=== PATIENT | female | born 1990 | race African-American/Black ===

== ENCOUNTER 2023-11-17 06:48 | Outpatient (CLI) | payer BC, MEDICAID, SELFPAY ==
--- NOTE | ~2023-11-17 | US_ITS ---
EXAMINATION: US OB <= 14 weeks fetus DATE: 11/17/2023 07:35 INDICATION: Spotting in first trimester. TECHNIQUE: Real-time transabdominal pelvic ultrasound was performed. COMPARISON: None. FINDINGS: The uterus measures 12.1 x 5.6 x 7.1 cm. There is an intrauterine gestational sac. The crown ru mp length measures 4.6 cm, which correlates with an estimated gestational age of 11 weeks and 3 day(s ) (+/-) 1 week(s) and 0 day(s). heart motion is identified measuring 159 beats per minute (bpm) by M-mode Doppler. The right ovary is not visualized. The left ovary measures 2.8 x 2.0 x 2.1 cm. Th ere is no free fluid in the pelvis. IMPRESSION: 1. Single living intrauterine gestation with estimated date of delivery of 06/04/2024. Reviewed, dictated and finalized at location A. IMPRESSION: 1. Single living intrauterine gestation with estimated date of delivery of 05/26.
== END 2023-11-17 06:49 | disposition home or self-care (01) ==
PROVIDERS: Visit Provider Obstetrics & Gynecology Gynecology
DX: O26.851 Spotting complicating pregnancy, first trimester (principal); Z3A.00 Weeks of gestation of pregnancy not specified
CPT/HCPCS: 76801

== ENCOUNTER 2024-02-13 13:31 | Observation (INO) | payer BC, MEDICAID, SELFPAY ==
[2024-02-13 14:02] VITALS: BP 127/66; PULSE 92
--- NOTE | 2024-02-13 14:12 | OBADM ---
This patient, Terrance Rios, admitted to the OB room [facility] for observation. Patient/family oriented to hospital policies and general routines including ID bracelet, bed and alarms, visiting hours, pain management, procedures, bathroom and other care routines, personal items, smoking policy, room service/diet, and visiting hours. Patient/Family are encouraged to report perceived risks to care and to ask questions if they do not understand what they are told or what they should do.
[2024-02-13 14:16] VITALS: BP 124/62; PULSE 90
[2024-02-13 14:22] LABS: Add Urine Microscopic? YES; Appearance Urine Cloudy (Clear); Bacteria Urine 4+ /hpf; Bilirubin Urine Negative (Negative); Blood Urine Negative (Negative); Color Urine Yellow (Yellow); Glucose Urine UA Negative (Negative); Ketones Urine 4+ mg/dL (Negative); Leukocyte Esterase Ur 2+ LEU/UL (Negative); Need Manual Microscopic Reviewed; Nitrate Urine Negative (Negative); Protein Urine 1+ mg/dL (Negative); RBC Urine 0-2 /hpf (0-2); Specific Grav Ur 1.031 (1.001-1.035); Squamous Epithelial Cell Urine Moderate /hpf (Few); WBC Urine 21-50 /hpf (0-3); pH Urine 5.5 (5.0-9.0)
[2024-02-13 14:31] VITALS: BP 118/68; PULSE 105
[2024-02-13 15:08] LABS: Basophils Percent Auto 0.4 % (0.2-1.2); Eosinophils Absolute Auto 0.1 K/mm3 (0-0.3); Hematocrit 31.5 % (37.0-47.0); Hemoglobin 10.6 g/dL (12.0-15.0); Immature Granulocyte Absolute 0.03 K/mm3 (0.00-0.031); Immature Granulocyte Percent A 0.4 % (0-0.5); Lymphocytes Absolute Auto 1.36 K/mm3 (0.9-3.2); Lymphocytes Percent Auto 19.6 % (18.3-44.2); Mean Corpuscular HGB Conc 33.7 g/dl (32-36); Mean Corpuscular Hemoglobin 30.5 pg (26-34); Mean Corpuscular Volume 90.8 fl (80-100); Mean Platelet Volume 10.6 fl (7.4-10.4); Monocytes Absolute Auto 0.5 K/mm3 (0.1-0.6); Monocytes Percent Auto 6.6 % (2.6-8.5); Neutrophils Absolute Auto 4.9 K/mm3 (1.3-6.7); Platelet Count Result 193 k/mm3 (150-375); Red Blood Count 3.47 M/mm3 (4.2-5.4); Red Cell Distribution Width 13.7 % (11.5-14.5)
[2024-02-13 15:18] LABS: Alanine Aminotransferase 20 U/L (6-35); Albumin Level 3.5 g/dL (3.5-5.1); Alkaline Phosphatase 96 U/L (38-126); Anion Gap 7 mmol/L (4-12); Aspartate Amino Transferase 24 U/L (14-36); Bilirubin,Total 0.3 mg/dL (0.2-1.3); Blood Urea Nitrogen 7 mg/dL (7-17); Calcium 9.1 mg/dL (8.4-10.2); Carbon Dioxide 20 mmol/L (22-30); Chloride 108 mmol/L (98-107); Estimated Glomerular Filt Rate > 60; Glucose 93 mg/dL (65-110); Potassium 3.4 mmol/L (3.4-5.0); Sodium 135 mmol/L (137-145); Uric Acid 3.7 mg/dL (2.5-7.5)
--- NOTE | 2024-02-18 11:21 | PM.OBTRLD ---
OB - Triage/Final Diagnosis Visit Information Reason for evaluation: other (abdominal pain) Comments/Additional reasons for admission: I have assessed the risk for this patient, Terrance Rios, and determined that she would benefit from observation care. Evaluation Laboratory results: Laboratory Tests 02/13/24 02/13/24 14:03 14:58 WBC 7.0 RBC 3.47 L Hgb 10.6 L Hct 31.5 L MCV 90.8 MCH 30.5 MCHC 33.7 RDW 13.7 Plt Count 193 MPV 10.6 H Immature Gran % (Auto) 0.4 Neut % (Auto) 71.0 Lymph % (Auto) 19.6 [place] % (Auto) 6.6 Eos % (Auto) 2.0 Baso % (Auto) 0.4 Lymph # (Auto) 1.36 [place] # (Auto) 0.5 Eos # (Auto) 0.1 Baso # (Auto) 0.0 Abs Immat Gran (auto) 0.03 Absolute Neuts (auto) 4.9 Absolute Nucleated RBC 0.000 Nucleated RBC % 0.0 Sodium 135 L Potassium 3.4 Chloride 108 H Carbon Dioxide 20 L Anion Gap 7 BUN 7 Creatinine 0.50 L Estim Creat Clear Calc Not Reportable Estimated GFR > 60 Glucose 93 Uric Acid 3.7 Calcium 9.1 Total Bilirubin 0.3 AST 24 ALT 20 Alkaline Phosphatase 96 Total Protein 7.0 Albumin 3.5 Urine Color Yellow Urine Appearance Cloudy H Urine pH 5.5 Ur Specific [place] 1.031 Urine Protein 1+ H Urine Glucose (UA) Negative Urine Ketones 4+ H Ur Blood (Man) Negative Urine Nitrate Negative Urine Bilirubin Negative Urine Urobilinogen 1.0 Add Ur Microanalysis Reviewed Leukocyte Esterase Rfl 2+ H Urine RBC 0-2 Urine WBC 21-50 H Ur Squamous Epith Cells Moderate Urine Bacteria 4+ H Urine Casts 11-20
== END 2024-02-13 15:35 | disposition home or self-care (01) ==
PROVIDERS: Admitting Provider Obstetrics & Gynecology Gynecology; PCP Physician Assistant; Visit Provider Obstetrics & Gynecology Gynecology
DX: O26.892 Other specified pregnancy related conditions, second trimester (principal); R10.9 Unspecified abdominal pain; Z3A.24 24 weeks gestation of pregnancy
CPT/HCPCS: 36415; 80053; 81001; 84550; 85025; 87086; G0378; G0379

== ENCOUNTER 2024-02-20 08:19 | Outpatient (CLI) | payer BC, MEDICAID, SELFPAY ==
--- NOTE | ~2024-02-20 | US_ITS ---
RIGHT UPPER QUADRANT ABDOMINAL ULTRASOUND (Doppler ultrasound interrogation techniques used as needed for this exam.) Ordering provider: Yolie Isaacs MD History: . O26.899 - Other specified related conditions, u... . Comparison: None. FINDINGS: PANCREAS: Partially visualized. Normal echotexture and size. PORTAL VEIN: Hepatopedal flow demonstrated. LIVER: Normal size and echotexture. No focal hepatic lesions or perihepatic fluid collections are kaela ntified. BILIARY DUCTS: No intra or extrahepatic biliary dilation. Common bile duct measures 3 mm in diameter which is normal for patient's age. GALLBLADDER: Normal. No stones, sludge, gallbladder wall thickening or pericholecystic fluid. Wall th ickness is 0.2 cm. Negative sonographic Durham's sign. RIGHT KIDNEY: Normal size. Measures 11.1 cm. No hydronephrosis, solid renal mass, renal calculi or pe rinephric fluid collections. No renal cysts. Abdominal aorta: Normal. IVC: Normal. FREE FLUID: None visualized within the upper abdomen. IMPRESSION: normal right upper quadrant ultrasound. Reviewed, dictated and finalized at location A. 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
== END 2024-02-20 08:20 | disposition home or self-care (01) ==
LOC: MICIMG 08:19
PROVIDERS: PCP Obstetrics & Gynecology Gynecology; Visit Provider Obstetrics & Gynecology Gynecology
DX: O26.899 Other specified pregnancy related conditions, unspecified trimester (principal); Z3A.00 Weeks of gestation of pregnancy not specified
CPT/HCPCS: 76705

== ENCOUNTER 2024-03-21 22:21 | Observation (INO) | payer BC, MEDICAID, SELFPAY ==
[2024-03-21] VITALS (21 sets, daily range): BP systolic 108–134; BP diastolic 67–76; PULSE 102–121; TEMP 36.4; O2SAT 95–100; BMI 36.2
[2024-03-21] MEDS: ONDANSETRON INJ 4 MG/2 ML VIAL IV PUSH (22:58)
[2024-03-21] MEDS: DEXTROSE 5%/0.45% SOD CHL 1,000 ML 999 ML IV CONT (23:00)
[2024-03-21 23:01] LABS: Add Urine Microscopic? YES; Appearance Urine Cloudy (Clear); Bacteria Urine 1+ /hpf; Bilirubin Urine Negative (Negative); Blood Urine Negative (Negative); Color Urine Yellow (Yellow); Glucose Urine UA Negative (Negative); Ketones Urine 3+ mg/dL (Negative); Leukocyte Esterase Ur 1+ LEU/UL (Negative); Nitrate Urine Negative (Negative); Non Pathogenic Casts 0-2; Protein Urine Negative (Negative); RBC Urine 0-2 /hpf (0-2); Specific Grav Ur 1.022 (1.001-1.035); Squamous Epithelial Cell Urine Few /hpf (Few)
[2024-03-22] VITALS (7 sets, daily range): BP systolic 121–134; BP diastolic 70–76; PULSE 106–112; O2SAT 95–99
[2024-03-22] MEDS: METOCLOPRAMIDE HCL INJ 10 MG/2 ML VIAL IV PUSH (00:24)
[2024-03-22] MEDS: DEXTROSE 5%/0.45% SOD CHL 1,000 ML 250 ML IV CONT (00:24)
--- NOTE | 2024-04-16 11:24 | PM.OBTRLD ---
OB - Triage/Final Diagnosis Visit Information Comments/Additional reasons for admission: I have assessed the risk for this patient, Terrance Rios, and determined that she would benefit from observation care. Evaluation Laboratory results: Laboratory Tests 03/21/24 22:50 Urine Color Yellow Urine Appearance Cloudy H Urine pH 7.0 Ur Specific [place] 1.022 Urine Protein Negative Urine Glucose (UA) Negative Urine Ketones 3+ H Ur Blood (Man) Negative Urine Nitrate Negative Urine Bilirubin Negative Urine Urobilinogen 1.0 Leukocyte Esterase Rfl 1+ H Urine RBC 0-2 Urine WBC 6-10 H Ur Squamous Epith Cells Few Urine Bacteria 1+ H Urine Casts 0-2 Final Diagnosis (1) Nausea and vomiting during : Code(s): O21.9 - Vomiting of , unspecified Status: Acute
== END 2024-03-22 03:59 | disposition home or self-care (01) ==
PROVIDERS: Admitting Provider Obstetrics & Gynecology; Visit Provider Obstetrics & Gynecology
DX: O21.2 Late vomiting of pregnancy (principal); Z3A.29 29 weeks gestation of pregnancy
CPT/HCPCS: 59025; 81001; 87086; 96374; 96375; G0378; G0379; J2405; J2765

== ENCOUNTER 2024-05-24 09:04 | Outpatient (RCR) | payer BC, MEDICAID, SELFPAY ==
[2024-04-19 17:10] VITALS: BP 124/69; PULSE 106
[2024-04-26 17:06] VITALS: BP 118/62; PULSE 99
[2024-05-03 17:04] VITALS: BP 119/64; PULSE 101
[2024-05-10 16:56] VITALS: BP 120/67; PULSE 103
[2024-05-17 17:04] VITALS: BP 123/66; PULSE 101
--- NOTE | ~2024-05-24 | US_ITS ---
EXAMINATION: US OB BPP wo non-stress DATE: 05/24/2024 10:56 INDICATION: Variable decelerations. Third trimester. TECHNIQUE: Real-time pelvic ultrasound was performed. COMPARISON: Ultrasound 11/17/2023 FINDINGS: There is a single living fetus in vertex presentation. The placenta is fundal. heart rate is 1 26 beats per minute (bpm). The amniotic fluid index is 9.7 cm which is normal. Biophysical profile performed by the technologist: breathing (30 sec sustained breathing in 30 minutes): 2 out of 2 movement (3 gross body movements in 30 minutes): 2 out of 2 tone (one episode of [id number]-[id number]-[id number] limb movement): 2 out of 2 Amniotic fluid pocket (2 cm): 2 out of 2 Total score: 8 out of 8 IMPRESSION: 1. Single living fetus in vertex presentation. 2. Biophysical profile 8 out of 8. Reviewed, dictated and finalized at location A. 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
[2024-05-24 11:05] VITALS: BP 121/77; PULSE 90
== END 2024-07-18 17:13 | disposition home or self-care (01) ==
LOC: ANHOBOP 09:04
PROVIDERS: Visit Provider Obstetrics & Gynecology Gynecology
DX: O13.9 Gestational [pregnancy-induced] hypertension without significant proteinuria, unspecified trimester (principal)
CPT/HCPCS: 59025; 76819

== ENCOUNTER 2024-05-28 08:39 | Inpatient (IN) | payer BC, MEDICAID, SELFPAY ==
[2024-05-28] VITALS (52 sets, daily range): BP systolic 105–147; BP diastolic 59–104; PULSE 67–173; TEMP 36.3–36.8; O2SAT 93–100; BMI 36.2
--- NOTE | 2024-05-28 09:00 | PC.NURSE ---
Pt. admitted at 0839 direct from [facility] office, Becca DIALLO noted low heart tones
--- OUTSIDE RECORDS SUMMARY | 2024-05-28 09:44 | XMS_ITS | Referral Summary ---
Author Organization [facility] Address [address] [place] [phone] Care Team Providers Care Relief Manager Name Role Phone Ml Griffin Primary Care Provider + Allergies No known active allergies Medications cyclobenzaprine (FLEXERIL) 10 mg tablet Take 1 tablet (10 mg total) by mouth 3 (three) times a day as needed for muscle spasms 12 tablet 3 Active ondansetron ODT (ZOFRAN-ODT) 4 mg disintegrating tablet Take 1 tablet (4 mg total) by mouth every 8 (eight) hours as needed for nausea or vomiting 20 tablet 3 Active Social History Tobacco Use Types Packs/Day Years Used Date Smoking Tobacco: Never Assessed Personal Safety Answer Date Recorded Have you ever been in or are you currently in a harmful physical or emotional relationship or is someone making you feel afraid or unsafe? Denies 09/22/2023 Comments No Sex and Gender Information Value Date Recorded Sex Assigned at Not on file Legal Sex Female 1:34 PM CDT Gender Identity Not on file Sexual Orientation Not on file Last Filed Vital Signs Vital Sign Reading Time Taken Comments Blood Pressure 139/78 09/22/2023 5:35 PM CDT Pulse 78 09/22/2023 5:35 PM CDT Temperature 36.7 C (98.1 F) 09/22/2023 2:25 PM CDT Respiratory Rate 18 09/22/2023 5:35 PM CDT Oxygen Saturation 100% 09/22/2023 5:35 PM CDT Inhaled Oxygen Concentration - - Weight 101.1 kg (222 lb 14.2 oz) 09/22/2023 2:25 PM CDT Height 170.2 cm (5' 7 ) 09/22/2023 2:25 PM CDT Body Mass Index 34.91 09/22/2023 2:25 PM CDT Plan of Treatment Not on file Insurance [facility] Care Teams Relief Manager Relationship Specialty Start Date End Date Ml Griffin PA PCP - General Physician Seed Potato Cutter 05/11/22
--- OUTSIDE RECORDS SUMMARY | 2024-05-28 09:44 | XMS_ITS | Patient Health Summary ---
Author Organization [facility] Address [address] [place] [address] Care Team Providers Care Hospital Attendant Name Role Phone Unavailable Primary Care Provider Unavailabl e Note from [facility] [place],non-owned Affiliates and Associated Physician Practices is amultiple site organization consisting of ambulatory clinics and hospital sitesin [place], [place], [place] and [place]. This disclosure is being madepursuant to the Care Everywhere program and may not contain all information available regarding this patient. Last updated 17.[facility] Allergies * Shellfish Allergy(Swelling) Medications * Be aware that medications may not be up to date on this document. Alwaysverify current medications with the patient. * NIFEdipine CR 24hr (Adalat CC) 60 MG tablet Take 1 (one) tablet by mouth once daily Take on an empty stomach. * Vit-DSS-Fe Fum-FA ( vitamin with iron) tablet Take 1 (one) tablet by mouth once daily * aspirin (Aspirin) 81 MG chew tablet Take 2 (two) tablets by mouth once daily * vitamin D3 (Cholecalciferol) 10 MCG (400 UNIT) tablet Take 1 (one) tablet by mouth once daily * ascorbic acid (Vitamin C) 500 MG tablet Take 1 (one) tablet by mouth once daily * lactobacillus (FLORAGEN) Take 1 (one) capsule by mouth once daily * ferrous sulfate 325 (65 FE) MG tablet Take 1 (one) tablet by mouth once daily Reasons: Iron Deficiency Active Problems Problem Noted Date Diagnosed Date Obesity affecting 01/18/2024 Class 1 obesity in adult 01/18/2024 Prediabetes in mother during Supervision of high-risk , unspecified trimester 12/21/2023 Pre-existing hypertension du ring in second trimester 12/21/2023 Advanced maternal age in multigravida, second tr imester 12/21/2023 Hx of preeclampsia, prior pr egnancy, currently , second trimester 12/21/2023 Social History Tobacco Use Types Packs/Day Years Used Date Smoking Tobacco: Never Smokeless Tobacco: Never Tobacco Cessation:Counseling Given: Not Answered Alcohol Use Standard Drinks/Week Comments Not Currently 0 (1 standard drink = 0.6 oz pur e alcohol) Estimated Date of Delivery Comme nts Yes 06/04/2024 Based on last me nstrual period of 08/29/2023 Sex and Gender Information Value Date Recorded Sex Assigned at Female 05/07/2024 10:13 AM WOMEN DESIGNER Gender Identity Female 05/07/2024 10:13 AM WOMEN DESIGNER Sexual Orientation Straight 05/07/2024 10 :13 AM WOMEN DESIGNER Last Filed Vital Signs Vital Sign Reading Time Taken Comments Blood Pressure 118/72 05/28/2024 8:28 AM WOMEN DESIGNER Pulse 95 05/28/2024 8:28 AM WOMEN DESIGNER Temperature - - Respiratory Rate 18 01/18/2024 8:10 AM CDT Oxygen Saturation - - Inhaled Oxygen Concentration - - Weight 106.1 kg (233 lb 14.4 oz) 05/09/2024 8:05 AM WOMEN DESIGNER Height 170.2 cm (5' 7 ) 03/14/2024 8:11 AM WOMEN DESIGNER Body Mass Index 36.63 03/14/2024 8:11 AM WOMEN DESIGNER Procedures * BIOPHYSICAL PROFILE W NST(Performed 05/28/2024) Performed for Supervision of high-risk , unspecified trimester (HCC), Advanced maternal age in multigravida, second trimester (HCC), Hx of preeclampsia, prior , currently , second trimester (HCC), Prediabetes in mother during (HCC), 39 weeks gestation of (HCC), Class 1 obesity without serious comorbidity in adult, unspecified BMI, unspecified obesity type, Pre-existing hypertension during in second trimester, unspecified pre-existing hypertension type (HCC) * BIOPHYSICAL PROFILE W NST(Performed 05/21/2024) Performed for Supervision of high-risk , unspecified trimester (HCC), Advanced maternal age in multigravida, second trimester (HCC), Hx of preeclampsia, prior , currently , second trimester (HCC), Prediabetes in mother during (HCC), Class 1 obesity without serious comorbidity in adult, unspecified BMI, unspecified obesity type, Pre-existing hypertension during in second trimester, unspecified pre-existing hypertension type (HCC) * BIOPHYSICAL PROFILE W NST(Performed 05/14/2024) Performed for Pre-existing essential hypertension during in third trimester (HCC), Advanced maternal age in multigravida, third trimester (HCC), Hx of preeclampsia, prior , currently , second trimester (HCC), Obesity affecting , antepartum, unspecified obesity type (HCC), Prediabetes in mother during (HCC), Encounter for ultrasound to assess growth (HCC), Encounter for screening (HCC) * BIOPHYSICAL PROFILE W NST(Performed 05/07/2024) Performed for Pre-existing essential hypertension during in third trimester (HCC), Advanced maternal age in multigravida, third trimester (HCC), Hx of preeclampsia, prior , currently , second trimester (HCC), Obesity affecting , antepartum, unspecified obesity type (HCC), Prediabetes in mother during (HCC), Encounter for ultrasound to assess growth (HCC), Encounter for screening ([facility]) * BIOPHYSICAL PROFILE W NST(Performed 04/30/2024) Performed for Pre-existing essential hypertension during in third trimester (HCC), Advanced maternal age in multigravida, third trimester (HCC), Hx of preeclampsia, prior , currently , second trimester (HCC), Obesity affecting , antepartum, unspecified obesity type (HCC), Prediabetes in mother during (HCC), Encounter for ultrasound to assess growth (HCC), Encounter for screening ([facility]) * BIOPHYSICAL PROFILE W NST(Performed 04/23/2024) Performed for Pre-existing essential hypertension during in third trimester (HCC), Advanced maternal age in multigravida, third trimester (HCC), Hx of preeclampsia, prior , currently , second trimester (HCC), Obesity affecting , antepartum, unspecified obesity type (HCC), Prediabetes in mother during (HCC), Encounter for ultrasound to assess growth (HCC), Encounter for screening ([facility]) * BIOPHYSICAL PROFILE W NST(Performed 04/16/2024) Performed for Pre-existing essential hypertension during in third trimester (HCC), Advanced maternal age in multigravida, third trimester (HCC), Hx of preeclampsia, prior , currently , second trimester (HCC), Obesity affecting , antepartum, unspecified obesity type (HCC), Prediabetes in mother during (HCC), Encounter for ultrasound to assess growth (HCC), Encounter for screening (HCC) * BIOPHYSICAL PROFILE W NST(Performed 04/11/2024) Performed for Pre-existing essential hypertension during in third trimester (HCC), Advanced maternal age in multigravida, third trimester (HCC), Hx of preeclampsia, prior , currently , second trimester (HCC), Obesity affecting , antepartum, unspecified obesity type (HCC), Prediabetes in mother during (HCC), Encounter for ultrasound to assess growth (HCC), Encounter for screening (HCC) * PROTEIN CREATININE RATIO URINE RANDOM PNL(Performed 03/19/2024) * TSH REFLEX FREE T4(Performed 03/19/2024) * SONOGRAM - COMPLETE(Performed 03/14/2024) Performed for Supervision of high-risk , unspecified trimester (HCC), Pre-existing essential hypertension during in second trimester (HCC), Advanced maternal age in multigravida, second trimester (HCC), Hx of preeclampsia, prior , currently , second trimester (HCC), Obesity affecting , antepartum, unspecified obesity type (HCC), Prediabetes in mother during (HCC), 28 weeks gestation of (HCC) * SONOGRAM - COMPLETE(Performed 02/15/2024) Performed for Supervision of high-risk , unspecified trimester (HCC), Pre-existing essential hypertension during in second trimester (HCC), Advanced maternal age in multigravida, second trimester (HCC), Hx of preeclampsia, prior , currently , second trimester (HCC), Obesity affecting , antepartum, unspecified obesity type (HCC), Prediabetes in mother during (HCC), 24 weeks gestation of (HCC) * SONOGRAM - COMPLETE(Performed 01/18/2024) Performed for Supervision of high-risk , unspecified trimester (HCC), Pre-existing hypertension during in second trimester, unspecified pre- existing hypertension type (HCC), Advanced maternal age in multigravida, second trimester (HCC), Hx of preeclampsia, prior , currently , second trimester (HCC), 20 weeks gestation of (HCC) * COMPREHENSIVE METABOLIC PANEL(Performed 01/09/2024) * PROTEIN CREATININE RATIO URINE TIMED PNL(Performed 01/02/2024) * TSH(Performed 01/02/2024) * T4 FREE(Performed 01/02/2024) * COMPREHENSIVE METABOLIC PANEL(Performed 01/02/2024) * CREATININE CLEARANCE URINE TIMED + BLOOD(Performed 01/02/2024) * SONOGRAM - COMPLETE(Performed 12/21/2023) Performed for Chronic hypertension, Pre-eclampsia in second trimester ([facility]), History of cardiomyopathy, Pre-diabetes, Proteinuria affecting in second trimester ([facility]), Encounter for anatomic survey ([facility]) Results * BIOPHYSICAL PROFILE W NST (05/28/2024 7:27 AM WOMEN DESIGNER) Only the most recent of8 resultswithin the time period is included. Linked Results Indication ======== CHTN on nifedipine, Pre-Diabetic A1C = 5.8%, Class I obesity AMA Prior preeclampsia 11/21/2023 Creatinine 0.65 mg/dL, Proteinuria 490 mg/day 01/02/2024 Creatinine 1.54 mg/dL, Proteinuria 156 mg/day 01/09/2024 Creatinine 0.53 mg/dL 03/19/2024 Proteinuria PCR 0.140 mg/mg History ====== OB History 6. Para 2 [id number] 1. live 2010. Gest. age 39 w + 0 d. Weight 2,331 g. Sex of child: female. Details: 2. live 2016. Gest. age 39 w + 0 d. Weight 3,175 g. Sex of child: male. Details: 3. elective termination 2020 4. elective termination 2021 5. elective termination 2023 Lab Tests Test Date Result NIPT Low risk Maternal Assessment Physical Exam Height 170 cm, 5 ft 7 in. Weight 104 kg, 229 lb. Initial weight 101 kg, 222 lb. BMI 35.87 kg/m . Initial BMI 34.77 kg/m . Weight gain 3 kg, 7 lb Method ====== Transabdominal ultrasound examination. View: Sufficient ========= Rajan . Number of fetuses: 1 Dating ====== Date Details Gest. age LUCIA LMP 08/29/2023 39 w + 0 d 06/04/2024 Stated LUCIA 39 w + 0 d 06/04/2024 Assigned dating based on the LMP, selected on 02/15/2024 39 w + 0 d 06/04/2024 General Evaluation Cardiac activity present. FHR 137 bpm. movements: present. Presentation: cephalic Placenta: Placental site: posterior Amniotic Fluid Assessment == Amount of AF: normal MVP 5.5 cm. KORI 13.2 cm. Q1 3.0 cm, Q2 2.2 cm, Q3 2.5 cm, Q4 5.5 cm Biophysical Profile 2: breathing movements 2: Gross body movements 2: tone 2: Amniotic fluid volume NST: non-reactive 11/04 Biophysical profile score Non Stress Test NST interpretation: non-reactive. Test duration 30 min. Baseline FHR 130 bpm. Baseline variability: minimal. Accelerations: present. Decelerations: present, recurrent variable, late, >= 30 seconds. Uterine activity: present, sporadic. CTG category: abnormal and indicates need for conservative measures and further testing Growth Overview Exam date GA BPD (mm) HC (mm) AC (mm) FL (mm) HL (mm) EFW (g) 02/15/2024 24w 2d 56.9 15% 226.5 46% 200.9 55% 41.9 19% 41 57% 676 39% 03/14/2024 28w 2d 72.6 66% 281.1 89% 251.2 74% 53.8 41% 50.6 80% 1350 71% 04/11/2024 32w 2d 82.1 64% 309.5 74% 281.4 46% 62.3 37% 55.3 50% 1991 47% 05/07/2024 36w 0d 87.2 35% 331.7 65% 321.1 61% 69.2 33% 62.4 72% 2822 51% Anatomy The following structures appear normal: Abdomen Stomach. Kidneys. Bladder. Impression ========= Single, live, intrauterine at 39w 0d Amniotic fluid volume: normal Biophysical profile: 11/04 Comment ======== Abnormal NST test results today - non reactive, late deceleration with mild contraction . Results reported to attending physician. Term ; biggest baby thus far for her Pt instructed to go to the labor unit of Hospital for further evaluation with recommendations to deliver. Follow-up ======== Follow up as clinically indicated Coding ====== Procedures 89298: US Uterus Limited 65794: Biophysical Profile W NST [employer] PACS Anatomical Region Laterality Modality Other 05/28/2024 7:27 AM WOMEN DESIGNER Yolie Isaacs MD [facility] ORDERABLES * TSH REFLEX FREE T4 (03/19/2024 8:19 AM WOMEN DESIGNER) TSH with Reflex FT4 0.55 mIU/L [employer] Comment: Reference Range > or = 20 Years 0.40-4.50 Ranges First trimester 0.26-2.66 Second trimester 0.55-2.73 Third trimester 0.43-2.91 Test Performed at: [employer] [address] KENYA ALEX MD 03/19/2024 8:19 AM WOMEN DESIGNER 03/19/2024 8:19 AM WOMEN DESIGNER Alessandra Mesa TRAINING AND DEVELOPMENT ASSISTANT-CABLE ASSEMBLER LAB - CHEMI STRY ORDERABLES [address] [address] * PROTEIN CREATININE RATIO URINE RANDOM PNL (03/19/2024 8:19 AM WOMEN DESIGNER) Creatinine Urine 150 20 - 275 mg/dL [facility] Protein/Creatinine Ratio 140 24 - 184 mg/g creat [facility] Protein/Creatinine Ratio 0.140 0.024 - 0.184 mg/mg creat [facility] Protein Random Urine 21 5 - 24 mg/dL [facility] Comment: Test Performed at: [employer] [address] KENYA ALEX MD 03/19/2024 8:19 AM WOMEN DESIGNER 03/19/2024 8:19 AM WOMEN DESIGNER Alessandra Aaron Mesa TRAINING AND DEVELOPMENT ASSISTANT-CABLE ASSEMBLER LAB - URINE CHEMISTRY ORDERABLES [address] [address] * SONOGRAM - COMPLETE (03/14/2024 7:36 AM WOMEN DESIGNER) Only the most recent of4 resultswithin the time period is included. Pathologist [facility] Linked Results Indication ======== CHTN on nifedipine, Pre-Diabetic A1C = 5.8%, Class I obesity AMA 34 years at LUCIA with low-risk cf-DNA Prior H/O preeclampsia 11/21/2023 Creatinine 0.65 mg/dL, proteinuria 490 mg/day 01/02/2024 Creatinine 1.54 mg/dL, proteinuria 156 mg/day 01/09/2024 Creatinine 0.53 mg/dL History ====== OB History 6. Para 2 [id number] 1. live 2010. Gest. age 39 w + 0 d. Weight 2,331 g. Sex of child: female. Details: 2. live 2016. Gest. age 39 w + 0 d. Weight 3,175 g. Sex of child: male. Details: 3. elective termination 2020 4. elective termination 2021 5. elective termination 2023 Lab Tests Test Date Result NIPT Low risk Maternal Assessment Physical Exam Height 170 cm, 5 ft 7 in. Weight 104 kg, 230 lb. Initial weight 101 kg, 222 lb. BMI 36.02 kg/m . Initial BMI 34.77 kg/m . Weight gain 4 kg, 8 lb Method ====== Transabdominal ultrasound ========= Rajan . Number of fetuses: 1 Dating ====== Date Details Gest. age LUCIA LMP 08/29/2023 28 w + 2 d 06/04/2024 U/S 03/14/2024 based upon AC, BPD, Femur, HC 29 w + 3 d 05/27/2024 Assigned dating based on the LMP, selected on 02/15/2024 28 w + 2 d 06/04/2024 General Evaluation Cardiac activity present. FHR 141 bpm. Presentation: cephalic Placenta: Placental site: posterior Amniotic fluid: Amount of AF: normal. MVP 4.6 cm. KORI 15.6 cm. Q1 4.6 cm, Q2 2.7 cm, Q3 4.2 cm, Q4 4.1 cm Biometry BPD 72.6 mm 29w 1d 66% [facility] HC 281.1 mm 30w 6d 89% [facility] AC 251.2 mm 29w 2d 74% [facility] Femur 53.8 mm 28w 4d 41% [facility] Humerus 50.6 mm 29w 4d 80% Ja HC / AC 1.12 -/- [facility] Weight Calculation: EFW 1,350 g 71% [facility] EFW (lb,oz) 3 lb 0 oz EFW by [facility] ([id number]) appropriate Growth Overview Exam date GA BPD (mm) HC (mm) AC (mm) FL (mm) HL (mm) EFW (g) 02/15/2024 24w 2d 56.9 15% 226.5 46% 200.9 55% 41.9 19% 41 57% 676 39% 03/14/2024 28w 2d 72.6 66% 281.1 89% 251.2 74% 53.8 41% 50.6 80% 1350 71% Anatomy The following structures appear normal: Heart / Thorax 4-chamber view. Abdomen Stomach. Kidneys. Bladder. Impression ========= Single, live, intrauterine at 28w 2d size & amniotic fluid volume are normal No malformations were seen within the limitations of ultrasound Follow-up ======== Repeat CMP & proteinuria assessment Follow up ultrasound for growth at 32 weeks Start 2x-weekly NST & 1x-weekly BPP at 32 weeks Coding ====== Procedures [id number]: US Preg Uterus Follow Up [facility] [employer] PACS Anatomical Region Laterality Modality Other 03/14/2024 7:36 AM WOMEN DESIGNER Yolie Isaacs MD [facility] ORDERABLES * COMPREHENSIVE METABOLIC PANEL (01/09/2024 8:02 AM CDT) Only the most recent of2 resultswithin the time period is included. Glucose 81 65 - 139 mg/dL [facility] Comment: Non-fasting reference interval BUN 7 7 - 25 mg/dL [facility] Creatinine 0.53 0.50 - 0.97 mg/dL [facility] eGFR by Cystatin C 124 > OR = 60 mL/min/1. 73m2 [facility] BUN/Creatinine Ratio SEE NOTE: 6 - 22 (calc) [facility] Comment: Not Reported: BUN and Creatinine are within reference range. Sodium 137 135 - 146 mmol/L [facility] Potassium 3.9 3.5 - 5.3 mmol/L [facility] Chloride 104 98 - 110 mmol/L [facility] CO2 24 20 - 32 mmol/L [facility] Calcium 9.2 8.6 - 10.2 mg/dL [facility] Protein Total 6.4 6.1 - 8.1 g/dL [facility] Albumin 3.8 3.6 - 5.1 g/dL [facility] Globulin Total 2.6 1.9 - 3.7 g/dL (calc) [facility] Albumin/Globulin Ratio 1.5 1.0 - 2.5 (calc) [facility] Bilirubin Total 0.4 0.2 - 1.2 mg/dL [facility] Alkaline Phosphatase 67 31 - 125 U/L [facility] AST 18 10 - 30 U/L [facility] ALT 20 6 - 29 U/L [facility] Comment: Test Performed at: [email or web address] [id number] [place] [address] [place] [address] KENYA ALEX MD 01/09/2024 8:02 AM CDT 01/12/2024 7:18 PM CDT Alessandra Aaron Mesa TRAINING AND DEVELOPMENT ASSISTANT-CABLE ASSEMBLER LAB - CHEMI STRY ORDERABLES Performing Organization Address [facility] de Phone Number [address] [address] * (ABNORMAL) PROTEIN CREATININE RATIO URINE TIMED PNL (01/02/2024 3:15 PM CDT) Creatinine 24 Hour Urine 1.64 0.50 - 2.15 g/24 h [facility] Protein 24 Hour Urine 95 <150 mg/g creat [facility] Protein/Creatini ne Ratio 0.095 <0.150 mg/mg creat [facility] Protein 24 Hour Urine 156(H) <150 mg/24 h [facility] Comment: TOTAL URINE VOLUME: 2600/24 Test Performed at: [place] [address] KENYA ALEX MD 01/02/2024 3:15 PM CDT 01/02/2024 3:31 PM CDT Jesusita Linder MD LAB - URINE CHEMISTR Y ORDERABLES Performing Organization Address [facility] de Phone Number [address] [address] * (ABNORMAL) CREATININE CLEARANCE URINE TIMED + BLOOD (01/02/2024 3:15 PM CDT) Creatinine 1.54(H) 0.50 - 0.97 mg/dL [facility] eGFR by Cystatin C 45(L) > OR = 60 mL/min/1.7 3m2 [facility] Creatinine 24 Hour Urine 1.64 0.50 - 2.15 g/24 h [facility] Body Surface Area 2.13 [facility] Creatinine Clearance 60(L) 75 - 115 mL/min [facility] Height Feet 5 ft [facility] Height Inches 7 in [facility] Weight Lbs 225 [facility] Comment: Test Performed at: [employer] [place] [address] KENYA ALEX MD 01/02/2024 3:15 PM CDT 01/02/2024 3:31 PM CDT Jesusita Linder MD LAB - URINE CHEMISTR Y ORDERABLES Performing Organization Address [facility] Co de Phone Number [facility] [id number] [place] [id number] * (ABNORMAL) TSH (01/02/2024 3:15 PM CDT) Pathologist [facility] TSH 0.26(L) mIU/L [facility] Comment: Reference Range > or = 20 Years 0.40-4.50 Ranges First trimester 0.26-2.66 Second trimester 0.55-2.73 Third trimester 0.43-2.91 Test Performed at: [email or web address] [address] [place] [address] KENYA ALEX MD 01/02/2024 3:15 PM CDT 01/02/2024 3:31 PM CDT Jesusita Linder MD LAB - CHEMISTRY EYAD BLANK Performing Organization Address [facility] de Phone Number [address] [id number] [place] [address] * T4 FREE (01/02/2024 3:15 PM CDT) Pathologist [facility] T4 Free 1.1 0.8 - 1.8 ng/dL [facility] Comment: Test Performed at: [email or web address] [id number] [facility] [place] [address] KENYA ALEX MD 01/02/2024 3:15 PM CDT 01/02/2024 3:31 PM CDT Jesusita Linder MD LAB - CHEMISTRY EYAD BLANK Performing Organization Address [facility] Co de Phone Number [facility] [address] [place] [address]
--- OUTSIDE RECORDS SUMMARY | 2024-05-28 09:44 | XMS_ITS | Clinical Summary ---
Author Organization [facility] [employer] Address [address] [place] [address] Care Team Providers Care Digital Content Manager Name Role Phone Unavailable Primary Care Provider Unavailabl e Source Comments [facility],non-owned Affiliates and Associated Physician Practices is amultiple site organization consisting of ambulatory clinics and hospital sitesin [place], [place], [place] and [place]. This disclosure is being madepursuant to the Care Everywhere program and may not contain all information available regarding this patient. Last updated 17.[facility] [employer] Allergies Active Allergy Reactions Criticality Noted Date Comments Shellfish Allergy Swelling 12/16/2023 Medications * Be aware that medications may not be up to date on this document. Alwaysverify current medications with the patient. Medication Sig Dispensed Refills Start Date End Date Status NIFEdipine CR 24hr (Adalat CC) 60 MG tablet Take 1 (one) tablet by mouth once daily Take on an empty stomach. Active Vit-DSS-Fe Fum-FA ( vitamin with iron) tablet Take 1 (one) tablet by mouth once daily Active aspirin (Aspirin) 81 MG chew tablet Take 2 (two) tablets by mouth once daily Active vitamin D3 (Cholecalciferol) 10 MCG (400 UNIT) tablet Take 1 (one) tablet by mouth once daily Active ascorbic acid (Vitamin C) 500 MG tablet Take 1 (one) tablet by mouth once daily Active lactobacillus (FLORAGEN) Take 1 (one) capsule by mouth once daily Active ferrous sulfate 325 (65 FE) MG tabletIndications:Ir on Deficiency Take 1 (one) tablet by mouth once daily Reasons: Iron Deficiency Active Active Problems Problem Noted Date Diagnosed Date Obesity affecting 01/18/2024 Class 1 obesity in adult 01/18/2024 Prediabetes in mother during Supervision of high-risk , unspecified trimester 12/21/2023 Pre-existing hypertension du ring in second trimester 12/21/2023 Advanced maternal age in multigravida, second tr imester 12/21/2023 Hx of preeclampsia, prior pr egnancy, currently , second trimester 12/21/2023 Estimated Date of Delivery Comme nts Yes 06/04/2024 Based on last me nstrual period of 08/29/2023 Encounters Date Type Department Care Team Description 05/28/2024 7:30 AM CLAIMS ANALYST Hospital Encounter [facility] [address] [place] [address] Benson Myles MD 05/21/2024 7:30 AM CLAIMS ANALYST - 05/21/2024 11:59 PM CLAIMS ANALYST Hospital Encounter [facility] [address] [place] [phone] Benson Myles MD Discharge Disposition: Home or Self Care 05/14/2024 7:30 AM CLAIMS ANALYST - 05/14/2024 11:59 PM CLAIMS ANALYST Hospital Encounter [facility] [address] [place] [phone] Head, Cee Recio MD Discharge Disposition: Home or Self Care 05/09/2024 7:39 AM CLAIMS ANALYST - 05/09/2024 11:59 PM CLAIMS ANALYST Hospital Encounter [facility] [address] [place] [phone] Nimisha Fernandez MD AGRICULTURE PROFESSOR Discharge Disposition: Home or Self Care 05/07/2024 7:30 AM CLAIMS ANALYST - 05/07/2024 11:59 PM CLAIMS ANALYST Hospital Encounter [facility] [address] [place] [phone] Cee Alvarado MD Discharge Disposition: Home or Self Care 04/30/2024 7:30 AM CLAIMS ANALYST - 04/30/2024 11:59 PM CLAIMS ANALYST Hospital Encounter [facility] [address] [place] [phone] Miladis Mims MD Discharge Disposition: Home or Self Care 04/23/2024 7:30 AM CLAIMS ANALYST - 04/23/2024 11:59 PM CLAIMS ANALYST Hospital Encounter [facility] [address] [place] [address] Benson Myles MD Discharge Disposition: Home or Self Care 04/16/2024 2:26 PM CLAIMS ANALYST - 04/16/2024 11:59 PM CLAIMS ANALYST Hospital Encounter [facility] [address] [place] [address] Head, Cee Recio MD Discharge Disposition: Home or Self Care 04/11/2024 7:26 AM CLAIMS ANALYST - 04/11/2024 11:59 PM CLAIMS ANALYST Hospital Encounter [facility] [address] [place] [address] Benjamin Storey MD Discharge Disposition: Home or Self Care 03/19/2024 Orders Only [facility] [address] [place] [address] Alessandra Mesa, [place] DIRECTOR-ADVANCE AGENT 03/14/2024 7:30 AM CLAIMS ANALYST - 03/14/2024 11:59 PM CLAIMS ANALYST Hospital Encounter [facility] [address] [place], [place] [id number] Benjamin Storey MD Discharge Disposition: Home or Self Care from Last 3 Months Family History Medical History Relation Name Comments Hypertension Father Hypertension Mother Cancer - Stomach Paternal Grandfather Relation Name Status Comments Father Mother Paternal Grandfather Social History Tobacco Use Types Packs/Day Years [...] Sex Assigned at Female 05/07/2024 10:13 AM CLAIMS ANALYST Gender Identity Female 05/07/2024 10:13 AM CLAIMS ANALYST Sexual Orientation Straight 05/07/2024 10 :13 AM CLAIMS ANALYST Last Filed Vital Signs Vital Sign Reading Time Taken Comments Blood Pressure 118/72 05/28/2024 8:28 AM CLAIMS ANALYST Pulse 95 05/28/2024 8:28 AM CLAIMS ANALYST Temperature - - Respiratory Rate 18 01/18/2024 8:10 AM CDT Oxygen Saturation - - Inhaled Oxygen Concentration - - Weight 106.1 kg (233 lb 14.4 oz) 05/09/2024 8:05 AM CLAIMS ANALYST Height 170.2 cm (5' 7 ) 03/14/2024 8:11 AM CLAIMS ANALYST Body Mass Index 36.63 03/14/2024 8:11 AM CLAIMS ANALYST Plan of Treatment Health Maintenance Due Date Last Done Comments PAP SMEAR 1989 HIV SCREENING 2004 HEPATITIS C SCREENING 03/20/2007 DTAP/TDAP/TD VACCINES (1 - Tdap) 2008 HEPATITIS B VACCINE (1 of 3 - 19+ 3-dose series) 2008 COVID-19 VACCINE (3 - 2023-2 5 season) 2023 07/11/2020, 06/13/2020 OB-ONE HOUR GLUCOSE 02/27/2024 OB-TDAP CURRENT 03/05/2024 OB-RHOGAM INJECTION 03/12/2024 DEPRESSION SCREENING 03/28/2024 OB-GROUP B STREP SCREEN 04/30/2024 ZOSTER VACCINE (1 of 2) 2039 INFLUENZA VACCINE Completed 01/10/2024 HIB VACCINE Aged Out No longer eligi ble based on patient's age to complete this topic HPV VACCINE Aged Out No longer eligi ble based on patient's age to complete this topic MENINGOCOCCAL (Group B) VACCINE Aged Out No longer eligible b ased on patient's age to complete this topic MENINGOCOCCAL VACCINE Aged Out No francine aly eligible based on patient's age to complete this topic PNEUMOCOCCAL VACCINE Aged Out No long er eligible based on patient's age to complete this topic Respiratory Syncytial Virus (RSV) Vaccine Pt: or over 60 yrs (No Doses Required) Completed Procedures Procedure Name Priority Date/Time Associated Diagnosis Comments BIOPHYSICAL PROFILE W NST Routine 05/28/2024 7:27 AM CLAIMS ANALYST Supervision of high-risk , unspecified trimester (HCC) Advanced maternal age in multigravida, second trimester (HCC) Hx of preeclampsia, prior , currently , second trimester (HCC) Prediabetes in mother during (HCC) 39 weeks gestation of (HCC) Class 1 obesity without serious comorbidity in adult, unspecified BMI, unspecified obesity type Pre-existing hypertension during in second trimester, unspecified pre-existing hypertension type (HCC) BIOPHYSICAL PROFILE W T Routine 05/21/2024 7:28 AM CLAIMS ANALYST Supervision of high-risk , unspecified trimester (HCC) Advanced maternal age in multigravida, second trimester (HCC) Hx of preeclampsia, prior , currently , second trimester (HCC) Prediabetes in mother during (HCC) Class 1 obesity without serious comorbidity in adult, unspecified BMI, unspecified obesity type Pre-existing hypertension during in second trimester, unspecified pre-existing hypertension type (HCC) BIOPHYSICAL PROFILE W [facility] Routine 05/14/2024 7:30 AM CLAIMS ANALYST Pre-existing essential hypertension during in third trimester (HCC) Advanced maternal age in multigravida, third trimester (HCC) Hx of preeclampsia, prior , currently , second trimester (HCC) Obesity affecting , antepartum, unspecified obesity type (HCC) Prediabetes in mother during (HCC) Encounter for ultrasound to assess growth (HCC) Encounter for screening (HCC) BIOPHYSICAL PROFILE W T Routine 05/07/2024 7:43 AM CLAIMS ANALYST Pre-existing essential hypertension during in third trimester (HCC) Advanced maternal age in multigravida, third trimester (HCC) Hx of preeclampsia, prior , currently , second trimester (HCC) Obesity affecting , antepartum, unspecified obesity type (HCC) Prediabetes in mother during (HCC) Encounter for ultrasound to assess growth (HCC) Encounter for screening (HCC) BIOPHYSICAL PROFILE W T Routine 04/30/2024 7:34 AM CLAIMS ANALYST Pre-existing essential hypertension during in third trimester (HCC) Advanced maternal age in multigravida, third trimester (HCC) Hx of preeclampsia, prior , currently , second trimester (HCC) Obesity affecting , antepartum, unspecified obesity type (HCC) Prediabetes in mother during (HCC) Encounter for ultrasound to assess growth (HCC) Encounter for screening (HCC) BIOPHYSICAL PROFILE W NST Routine 04/23/2024 7:37 AM CLAIMS ANALYST Pre-existing essential hypertension during in third trimester (HCC) Advanced maternal age in multigravida, third trimester (HCC) Hx of preeclampsia, prior , currently , second trimester (HCC) Obesity affecting , antepartum, unspecified obesity type (HCC) Prediabetes in mother during (HCC) Encounter for ultrasound to assess growth (HCC) Encounter for screening (HCC) BIOPHYSICAL PROFILE W NST Routine 04/16/2024 3:35 PM CLAIMS ANALYST Pre-existing essential hypertension during in third trimester (HCC) Advanced maternal age in multigravida, third trimester (HCC) Hx of preeclampsia, prior , currently , second trimester (HCC) Obesity affecting , antepartum, unspecified obesity type (HCC) Prediabetes in mother during (HCC) Encounter for ultrasound to assess growth (HCC) Encounter for screening (HCC) BIOPHYSICAL PROFILE W NST Routine 04/11/2024 7:28 AM CLAIMS ANALYST Pre-existing essential hypertension during in third trimester (HCC) Advanced maternal age in multigravida, third trimester (HCC) Hx of preeclampsia, prior , currently , second trimester (HCC) Obesity affecting , antepartum, unspecified obesity type (HCC) Prediabetes in mother during (HCC) Encounter for ultrasound to assess growth (HCC) Encounter for screening (HCC) PROTEIN CREATININE RATIO URINE RANDOM PNL 03/19/2024 8:19 AM CLAIMS ANALYST TSH REFLEX FREE T4 03/19/2024 8: 19 AM CLAIMS ANALYST SONOGRAM - COMPLETE Routine 03/14/2024 7 :36 AM CLAIMS ANALYST Supervision of high-risk , unspecified trimester (HCC) Pre-existing essential hypertension during in second trimester (HCC) Advanced maternal age in multigravida, second trimester (HCC) Hx of preeclampsia, prior , currently , second trimester (HCC) Obesity affecting , antepartum, unspecified obesity type (HCC) Prediabetes in mother during (HCC) 28 weeks gestation of (HCC) from Last 3 Months Results * BIOPHYSICAL PROFILE W NST (05/28/2024 7:27 AM CLAIMS ANALYST) Only the most recent of8 resultswithin the time period is included. Linked Results Indication ======== CHTN on nifedipine, Pre-Diabetic A1C = 5.8%, Class I obesity AMA Prior preeclampsia 11/21/2023 Creatinine 0.65 mg/dL, Proteinuria 490 mg/day 01/02/2024 Creatinine 1.54 mg/dL, Proteinuria 156 mg/day 01/09/2024 Creatinine 0.53 mg/dL 03/19/2024 Proteinuria PCR 0.140 mg/mg History ====== OB History 6. Para 2 [id number] 1. live 2010. Gest. age 39 w [...] up as clinically indicated Coding ====== Procedures 39318: US Uterus Limited 40993: Biophysical Profile W NST [facility] PACS Anatomical Region Laterality Modality Other 05/28/2024 7:27 AM CLAIMS ANALYST Yolie Isaacs MD [facility] ORDERABLES * TSH REFLEX FREE T4 (03/19/2024 8:19 AM CLAIMS ANALYST) TSH with Reflex FT4 0.55 mIU/L [facility] Comment: Reference Range > or = 20 Years 0.40-4.50 Ranges First trimester 0.26-2.66 Second trimester 0.55-2.73 Third trimester 0.43-2.91 Test Performed at: [facility] [address] KENYA ALEX MD 03/19/2024 8:19 AM CLAIMS ANALYST 03/19/2024 8:19 AM CLAIMS ANALYST Alessandra Mesa CO DIRECTOR-ADVANCE AGENT LAB - CHEMI STRY ORDERABLES [address] [address] * PROTEIN CREATININE RATIO URINE RANDOM PNL (03/19/2024 8:19 AM CLAIMS ANALYST) Creatinine Urine 150 20 - 275 mg/dL [facility] Protein/Creatinine Ratio 140 24 - 184 mg/g creat [facility] Protein/Creatinine Ratio 0.140 0.024 - 0.184 mg/mg creat [facility] Protein Random Urine 21 5 - 24 mg/dL [facility] Comment: Test Performed at: [facility] [address] KENYA ALEX MD 03/19/2024 8:19 AM CLAIMS ANALYST 03/19/2024 8:19 AM CLAIMS ANALYST Alessandra Walker Misjacieljolynn CO DIRECTOR-ADVANCE AGENT LAB - URINE CHEMISTRY ORDERABLES [facility] [address] [place] [address] * SONOGRAM - COMPLETE (03/14/2024 7:36 AM CLAIMS ANALYST) Linked Results Indication ======== CHTN on nifedipine, Pre-Diabetic A1C = 5.8%, Class I obesity AMA 35 years at [facility] with low-risk cf-DNA Prior H/O preeclampsia 11/21/2023 Creatinine 0.65 mg/dL, proteinuria 490 mg/day 01/02/2024 Creatinine 1.54 mg/dL, proteinuria 156 mg/day 01/09/2024 Creatinine 0.53 mg/dL History ====== OB History 6. Para 2 [id number] 1. live 2010. Gest. age 39 w [...] 3 lb 0 oz EFW by Hadlock ([id number]) appropriate Growth Overview Exam date GA BPD [...] BPP at 32 weeks Coding ====== Procedures [id number]: US Preg Uterus Follow Up [facility] PACS Anatomical Region Laterality Modality Other 03/14/2024 7:36 AM CLAIMS ANALYST Yolie Isaacs MD [facility] ORDERABLES from Last 3 Months Terrance Rios Personal/Family Self 1990
--- OUTSIDE RECORDS SUMMARY | 2024-05-28 09:44 | XMS_ITS | Encounter Summary ---
Author Organization [facility] Address [address] [place] [address] Care Team Providers Care Tire Maker Name Role Phone Unavailable Primary Care Provider Unavailabl e Reason for Referral * (Routine) - Open Specialty Diagnoses / Procedures Referred By Malou t Referred To Contact Diagnoses Supervision of high-risk , unspecified trimester (HCC) Advanced maternal age in multigravida, second trimester (HCC) Hx of preeclampsia, prior , currently , second trimester (HCC) Prediabetes in mother during (HCC) 39 weeks gestation of (HCC) Class 1 obesity without serious comorbidity in adult, unspecified BMI, unspecified obesity type Pre-existing hypertension during in second trimester, unspecified pre-existing hypertension type (HCC) Procedures BIOPHYSICAL PROFILE W Yolie Monroy MD [address] [place] [address] Referral ID Status Reason Start Date Expiration Date Visits Re quested Visits Authorized [id number] Open 05/28/2024 05/28/2025 1 1 ER LASTER * (Routine) - Open Specialty Diagnoses / Procedures Referred By Contmel t Referred To Contact Diagnoses Supervision of high-risk , unspecified trimester (HCC) Advanced maternal age in multigravida, second trimester (HCC) Hx of preeclampsia, prior , currently , second trimester (HCC) Prediabetes in mother during (HCC) 39 weeks gestation of (HCC) Class 1 obesity without serious comorbidity in adult, unspecified BMI, unspecified obesity type Pre-existing hypertension during in second trimester, unspecified pre-existing hypertension type (HCC) Procedures BIOPHYSICAL PROFILE W Yolie Monroy MD [address] [place] [address] Referral ID Status Reason Start Date Expiration Date Visits Re quested Visits Authorized [id number] Open 05/28/2024 05/28/2025 1 1 ER LASTER Reason for Visit * Reason Comments Ultrasound Biophysical Profile Non-stress Test * (Routine) - Open Specialty Diagnoses / Procedures Referred By Contac t Referred To Contact Diagnoses Supervision of high-risk , unspecified trimester (HCC) Advanced maternal age in multigravida, second trimester (HCC) Hx of preeclampsia, prior , currently , second trimester (HCC) Prediabetes in mother during (HCC) 39 weeks gestation of ([facility]) Class 1 obesity without serious comorbidity in adult, unspecified BMI, unspecified obesity type Pre-existing hypertension during in second trimester, unspecified pre-existing hypertension type ([facility]) Procedures BIOPHYSICAL PROFILE W NST Yolie Isaacs MD [address] [place] [address] Referral ID Status Reason Start Date Expiration Date Visits Re quested Visits Authorized [id number] Open 05/28/2024 05/28/2025 1 1 Encounter Details Date Type Department Care Team (Late st Contact Info) Description 05/28/2024 7:30 AM HOOKER LASTER Hospital Encounter [facility] [address] [place] [address] Benson Myles MD [address] [place] [address] Social History Tobacco Use Types Packs/Day Years Used Date Smoking Tobacco: Never Smokeless Tobacco: Never Alcohol Use Standard Drinks/Week Comments Not Currently 0 (1 standard drink = 0.6 oz pur e alcohol) Estimated Date of Delivery Comme nts Yes 06/04/2024 Based on last me nstrual period of 08/29/2023 Sex and Gender Information Value Date Recorded Sex Assigned at Female 05/07/2024 10:13 AM HOOKER LASTER Gender Identity Female 05/07/2024 10:13 AM HOOKER LASTER Sexual Orientation Straight 05/07/2024 10 :13 AM HOOKER LASTER documented as of this encounter Last Filed Vital Signs Vital Sign Reading Time Taken Comments Blood Pressure 118/72 05/28/2024 8:28 AM HOOKER LASTER Pulse 95 05/28/2024 8:28 AM HOOKER LASTER Temperature - - Respiratory Rate - - Oxygen Saturation - - Inhaled Oxygen Concentration - - Weight - - Height - - Body Mass Index - - documented in this encounter Progress Notes * Patricia Cheung RN - 05/28/2024 8:49 AM CST Patient here today for NST/BPP performed at GA 39w0d. Patient reports positive movement. Denies cramping, vaginal bleeding, and leakage of fluid. Reports occasional, not regular contractions. Patient denies headache, epigastric pain and visual changes. VS per flowsheet. NST shows a couple variables and a possible late deceleration. Reviewed NST with MFM as non reactive. BPP 11/02. Patient sent to local L&D for further evaluation and MFM recommends delivery. Patient advised to go directly to local L&D. Patient voiced understanding. YOEL Brower at [facility] notified of todays testing and MFM recommendations. Left messageon Dr. Isaacs's office triage line regarding todays results/recommendations. Ultrasound report routed to primary OB office and local L&D. Patricia Cheung RN 05/28/2024 8:54 AM ER LASTER documented in this encounter Plan of Treatment Not on file documented as of this encounter Procedures Procedure Name Priority Date/Time Associated Diagnosis Comments BIOPHYSICAL PROFILE W NST Routine 05/28/2024 7:27 AM HOOKER LASTER Supervision of high-risk , unspecified trimester (HCC) Advanced maternal age in multigravida, second trimester (HCC) Hx of preeclampsia, prior , currently , second trimester (HCC) Prediabetes in mother during (HCC) 39 weeks gestation of ([facility]) Class 1 obesity without serious comorbidity in adult, unspecified BMI, unspecified obesity type Pre-existing hypertension during in second trimester, unspecified pre-existing hypertension type (HCC) documented in this encounter Results * BIOPHYSICAL PROFILE W NST (05/28/2024 7:27 AM HOOKER LASTER) Linked Results Indication ======== CHTN on nifedipine, Pre-Diabetic A1C = 5.8%, Class I obesity AMA Prior preeclampsia 11/21/2023 Creatinine 0.65 mg/dL, Proteinuria 490 mg/day 01/02/2024 Creatinine 1.54 mg/dL, Proteinuria 156 mg/day 01/09/2024 Creatinine 0.53 mg/dL 03/19/2024 Proteinuria PCR 0.140 mg/mg History ====== OB History 6. Para 2 [id number] 1. live 2010. Gest. age 39 w [...] up as clinically indicated Coding ====== Procedures [id number]: US Uterus Limited 97615: Biophysical Profile W NST [facility] [employer] PACS Anatomical Region Laterality Modality Other 05/28/2024 7:27 AM HOOKER LASTER Yolie Isaacs MD [facility] ORDERABLES documented in this encounter Visit Diagnoses Diagnosis Supervision of high-risk , unspecified trimester ([facility])- Primary Advanced maternal age in multigravida, second trimester ([facility]) Hx of preeclampsia, prior , currently , second trimester ([facility]) Prediabetes in mother during ([facility]) Encounter for screening ([facility]) 39 weeks gestation of ([facility]) state, incidental Class 1 obesity without serious comorbidity in adult, unspecified BMI, unspecified obesity type Pre-existing hypertension during in second trimester, unspecified pre-existing hypertension type ([facility]) documented in this encounter
--- OUTSIDE RECORDS SUMMARY | 2024-05-28 09:44 | XMS_ITS | Data Portability ---
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 Lab CMP, serum or plasma 2022 023 [facility], [address] [place] [address], [address], [place], [address], 19:08:33 lipid panel, serum 2022 023 [facility], [address] [place] [address], [address], [place], [address], 19:08:33 CBC w/ auto diff 2022 023 [facility], [address] [place] [address], [address], [place], [address], 19:08:34 microalbumi n/creatinin e, mass ratio, urine 2022 023 [facility], [address], [address], [place], [address], 3 10:13:47 Referral None recorded. Procedures None recorded. Surgeries None recorded. Imaging None recorded. Medication Orders nifedipine ER 30 mg tablet,exte nded release 24 hr 2023 024 [id number], [address] [place], [id number], 4 10:03:21 Patient TargetsNo targets recorded. Patient Instructions Encounter Date Encounter Id Patient Instructions Last Modified By Organization Details Last Modified Time 07/19/2023 [id number] A healthy lifestyle: care instructions Not available 07/19/2023 14:06:07 Reason for Referral None Reported. Results Created Date Observation Date Name Description Value Unit Range Abnormal Flag Note LastModifiedBy Organization Detail LastModifiedTime 11/09/1911/08/2022 LIPID PANEL cholesterol, total 132 mg/dL 100-19 9 Not Available [facility] [address] [place], [address], 11/08/2022 19:08:33 11/09/1911/08/2022 LIPID PANEL triglyceride s 72 mg/dL 0-149 Not Available [facility] Department [address] [place], [address], 11/08/2022 19:08:33 11/09/1911/08/2022 LIPID PANEL HDL cholesterol 50 mg/dL 40-999 Not Available [facility] Department [address] [place], [address], 11/08/2022 19:08:33 11/09/19 23 11/08/2022 LIPID PANEL VLDL cholesterol rakesh 14 mg/dL 5-40 Not Available [facility] Department [address] [place], [address], 11/08/2022 19:08:33 11/09/19 23 11/08/2022 LIPID PANEL LDL chol calc (nih) 77 mg/dL 0-99 Not Available [facility] Department [address] [place], [address], 11/08/2022 19:08:33 11/09/19 23 11/08/2022 COMP. METAB OLIC PANEL (14) glucose 87 mg/dL 70-99 Not Available [facility] [address] [place] [address], [address], 11/08/2022 19:08:33 11/09/19 23 11/08/2022 COMP. METAB OLIC PANEL (14) BUN 10 mg/dL 6-20 Not Available [facility] [address] [place] [address], [address], 11/08/2022 19:08:33 11/09/19 23 11/08/2022 COMP. METAB OLIC PANEL (14) creatinine 0.77 mg/dL 0.76-1 .27 Not Available [facility] [address] [place], [address], 11/08/2022 19:08:33 11/09/19 23 11/08/2022 COMP. METAB OLIC PANEL (14) eGFR 104 >=60 Units for eGFR value s are mL/mi n/1.7 3 The eGFR Calcu latio n has not been valid ated for patie nts under the age of 18. If test resul ts are displ ayed for a patie nt under the age of 18, disre abdi that value . Not Available [facility] [address] [place] [address], [address], 11/08/2022 19:08:33 11/09/19 23 11/08/2022 COMP. METAB OLIC PANEL (14) BUN/creatini ne ratio 13 9-23 Not Available [facility] Department [address] [place], [address], 11/08/2022 19:08:33 11/09/19 23 11/08/2022 COMP. METAB OLIC PANEL (14) sodium 138 mmol/ L 134-14 4 Not Available [facility] [address] [place], [address], 11/08/2022 19:08:33 11/09/19 23 11/08/2022 COMP. METAB OLIC PANEL (14) potassium 4.0 mmol/ L 3.5-5. 2 Not Available [facility] [address] [place], [address], 11/08/2022 19:08:33 11/09/19 23 11/08/2022 COMP. METAB OLIC PANEL (14) chloride 102 mmol/ L 96-106 Not Available [facility] [address] [place] [address], [address], 11/08/2022 19:08:33 11/09/19 23 11/08/2022 COMP. METAB OLIC PANEL (14) carbon dioxide, total 24 mmol/ L 20-29 Not Available [facility] [address] [place], [address], 11/08/2022 19:08:33 11/09/19 23 11/08/2022 COMP. METAB OLIC PANEL (14) calcium 9.6 mg/dL 8.7-10 .2 Not Available [facility] [address] [place], [address], 11/08/2022 19:08:33 11/09/19 23 11/08/2022 COMP. METAB OLIC PANEL (14) protein, total 7.7 g/dL 6.0-8. 5 Not Available [facility] [address] [place], [address], 11/08/2022 19:08:33 11/09/19 23 11/08/2022 COMP. METAB OLIC PANEL (14) albumin 4.7 g/dL 3.9-4. 9 Not Available [facility] [address] [place], [address], 11/08/2022 19:08:33 11/09/19 23 11/08/2022 COMP. METAB OLIC PANEL (14) globulin, total 3.0 g/dL 1.5-4. 5 Not Available [facility] [address] [place], [address], 11/08/2022 19:08:33 11/09/19 23 11/08/2022 COMP. METAB OLIC PANEL (14) A/G ratio 1.6 1.2-2. 2 Not Available [facility] [address] [place], [address], 11/08/2022 19:08:33 11/09/19 23 11/08/2022 COMP. METAB OLIC PANEL (14) bilirubin, total 0.5 mg/dL 0.0-1. 2 Not Available [facility] [address] [place], [address], 11/08/2022 19:08:33 11/09/19 23 11/08/2022 COMP. METAB OLIC PANEL (14) alkaline phosphatase 79 IU/L 44-121 Not Available [facility] Department [address] [place], [address], 11/08/2022 19:08:33 11/09/19 23 11/08/2022 COMP. METAB OLIC PANEL (14) AST (SGOT) 27 IU/L 0-40 Not Available [facility] [address] [place], [address], 11/08/2022 19:08:33 11/09/19 23 11/08/2022 COMP. METAB OLIC PANEL (14) ALT (SGPT) 30 IU/L 0-32 Not Available [facility] Department [address] [place], [address], 11/08/2022 19:08:33 11/09/19 23 11/08/2022 CBC WITH DIFFE RENTI AL/PL ATELE T WBC 6.0 x10e3 /uL 3.4-10 .8 Not Available [facility] [address] [place], [address], 11/08/2022 19:08:34 11/09/19 23 11/08/2022 CBC WITH DIFFE RENTI AL/PL ATELE T RBC 4.29 x10e6 /uL 3.77-5 .28 Not Available [facility] [address] [place], [address], 11/08/2022 19:08:34 11/09/19 23 11/08/2022 CBC WITH DIFFE RENTI AL/PL ATELE T hemoglobin 12.6 g/dL 11.1-1 5.9 Not Available [facility] [address] [place], [address], 11/08/2022 19:08:34 11/09/19 23 11/08/2022 CBC WITH DIFFE RENTI AL/PL ATELE T hematocrit 39.7 % 34.0-4 6.6 Not Available [facility] [address] [place], [address], 11/08/2022 19:08:34 11/09/19 23 11/08/2022 CBC WITH DIFFE RENTI AL/PL ATELE T MCV 93 fL 79-97 Not Available [facility] [address] [place], [address], 11/08/2022 19:08:34 11/09/19 23 11/08/2022 CBC WITH DIFFE RENTI AL/PL ATELE T MCH 29.4 pg 26.6-3 3.0 Not Available [facility] [address] [place], [address], 11/08/2022 19:08:34 11/09/19 23 11/08/2022 CBC WITH DIFFE RENTI AL/PL ATELE T MCHC 31.7 g/dL 31.5-3 5.7 Not Available [facility] [address] [place], [address], 11/08/2022 19:08:34 11/09/19 23 11/08/2022 CBC WITH DIFFE RENTI AL/PL ATELE T RDW 12.7 % 11.5-1 4.5 Not Available [facility] [address] [place], [address], 11/08/2022 19:08:34 11/09/19 23 11/08/2022 CBC WITH DIFFE RENTI AL/PL ATELE T platelets 302 x10e3 /uL 150-45 0 Not Available [facility] [address] [place], [address], 11/08/2022 19:08:34 11/09/19 23 11/08/2022 CBC WITH DIFFE RENTI AL/PL ATELE T neutrophils 67 % notest b. Not Available [facility] [address] [place], [address], 11/08/2022 19:08:34 11/09/19 23 11/08/2022 CBC WITH DIFFE RENTI AL/PL ATELE T lymphs 25 % notest b. Not Available [facility] [address] [place], [address], 11/08/2022 19:08:34 11/09/19 23 11/08/2022 CBC WITH DIFFE RENTI AL/PL ATELE T monocytes 6 % notest b. Not Available [facility] [address] [place], [address], 11/08/2022 19:08:34 11/09/19 23 11/08/2022 CBC WITH DIFFE RENTI AL/PL ATELE T eos 2 % notest b. Not Available [facility] [address] [place], [address], 11/08/2022 19:08:34 11/09/19 23 11/08/2022 CBC WITH DIFFE RENTI AL/PL ATELE T basos 0 % notest b. Not Available [facility] [address] [place], [address], 11/08/2022 19:08:34 11/09/19 23 11/08/2022 CBC WITH DIFFE RENTI AL/PL ATELE T neutrophils (absolute) 4.0 x10e3 /uL 1.4-7. 0 Not Available [facility] [address] [place], [address], 11/08/2022 19:08:34 11/09/19 23 11/08/2022 CBC WITH DIFFE RENTI AL/PL ATELE T lymphs (absolute) 1.5 x10e3 /uL 0.7-3. 1 Not Available [facility] [address] [place], [address], 11/08/2022 19:08:34 11/09/19 23 11/08/2022 CBC WITH DIFFE RENTI AL/PL ATELE T monocytes(ab solute) 0.4 x10e3 /uL 0.1-0. 9 Not Available [facility] [address] [place], [address], 11/08/2022 19:08:34 11/09/19 23 11/08/2022 CBC WITH DIFFE RENTI AL/PL ATELE T eos (absolute) 0.1 x10e3 /uL 0.0-0. 4 Not Available [facility] [address] [place], [address], 11/08/2022 19:08:34 11/09/19 23 11/08/2022 CBC WITH DIFFE RENTI AL/PL ATELE T baso (absolute) 0.0 x10e3 /uL 0.0-0. 2 Not Available [facility] [address] [place], [address], 11/08/2022 19:08:34 11/09/19 23 11/08/2022 CBC WITH DIFFE RENTI AL/PL ATELE T immature granulocytes 0.3 % notest b. Not Available [facility] [address] [place], [address], 11/08/2022 19:08:34 11/09/19 23 11/08/2022 CBC WITH DIFFE RENTI AL/PL ATELE T immature grans (abs) 0.0 x10e3 /uL 0.0-0. 1 Not Available [facility] [address] [place], [address], 11/08/2022 19:08:34 11/09/19 23 11/08/2022 CBC WITH DIFFE RENTI AL/PL ATELE T NRBC 0 % 0-0 Not Available [facility] [address] [place], [address], 11/08/2022 19:08:34 11/09/19 23 11/09/2022 ALBUM IN/CR EAT RATIO , INA Beaver UR creatinine, urine 404.7 mg/dL notest ab. Not Available [facility] ([facility]) [address] [place], [address], 11/09/2022 10:13:47 11/09/19 23 11/09/2022 ALBUM IN/CR EAT RATIO , INA Beaver UR albumin, urine 29.5 ug/mL notest ab. Not Available [facility] ([facility]) [address] [place], [address], 11/09/2022 10:13:47 11/09/19 23 11/09/2022 ALBUM IN/CR EAT RATIO , INA M UR alb/creat ratio 7 mg/g_ creat 0-29 Luisa l: 0 - 29 Moder ately incre ased: 30 - 300 Sever elkin incre ased: >300 Not Available [facility] ([facility]) [address] [place], [address], 11/09/2022 10:13:47 06/20/19 24 06/21/2023 LIPID PANEL cholesterol, total 123 mg/dL 100-19 9 Not Available [facility] ([facility]) [address] [place], [address], 06/21/2023 09:13:48 06/20/19 24 06/21/2023 LIPID PANEL triglyceride s 106 mg/dL 0-149 Not Available [facility] ([facility]) [address] [place], [address], 06/21/2023 09:13:48 06/20/19 24 06/21/2023 LIPID PANEL HDL cholesterol 60 mg/dL >39 Not Available [facility]) [address] [place], [address], 06/21/2023 09:13:48 06/20/19 24 06/21/2023 LIPID PANEL VLDL cholesterol rakesh 19 mg/dL 5-40 Not Available [facility] ([facility]) [address] [place], [address], 06/21/2023 09:13:48 06/20/19 24 06/21/2023 LIPID PANEL LDL chol calc (nih) 44 mg/dL 0-99 Not Available [facility] ([facility]) [address] [place], [address], 06/21/2023 09:13:48 06/20/19 24 06/21/2023 COMP. METAB OLIC PANEL (14) glucose 85 mg/dL 70-99 Not Available [facility] ([facility]) [address] [place], [address], 06/21/2023 09:13:49 06/20/19 24 06/21/2023 COMP. METAB OLIC PANEL (14) BUN 12 mg/dL 6-20 Not Available [facility] ([facility]) [address] [place], [address], 06/21/2023 09:13:49 06/20/19 24 06/21/2023 COMP. METAB OLIC PANEL (14) creatinine 0.81 mg/dL 0.57-1 .00 Not Available [facility] ([facility]) [address] [facility] [place], [address], 06/21/2023 09:13:49 06/20/19 24 06/21/2023 COMP. METAB OLIC PANEL (14) eGFR 98 mL/mi n/1.7 3 >59 Not Available [facility] ([facility]) [address] [facility] [place], [address], 06/21/2023 09:13:49 06/20/19 24 06/21/2023 COMP. METAB OLIC PANEL (14) BUN/creatini ne ratio 15 9-23 Not Available [facility] ([facility]) [address] [facility] [place], [address], 06/21/2023 09:13:49 06/20/19 24 06/21/2023 COMP. METAB OLIC PANEL (14) sodium 142 mmol/ L 134-14 4 Not Available [facility] ([facility]) [address] [facility] [place], [address], 06/21/2023 09:13:49 06/20/19 24 06/21/2023 COMP. METAB OLIC PANEL (14) potassium 4.2 mmol/ L 3.5-5. 2 Not Available [facility] ([facility]) [address] [facility] [place], [address], 06/21/2023 09:13:49 06/20/19 24 06/21/2023 COMP. METAB OLIC PANEL (14) chloride 105 mmol/ L 96-106 Not Available [facility] ([facility]) [address] [facility] [place], [address], 06/21/2023 09:13:49 06/20/19 24 06/21/2023 COMP. METAB OLIC PANEL (14) carbon dioxide, total 23 mmol/ L 20-29 Not Available [facility] ([facility]) [address] [facility], [place], [address], 06/21/2023 09:13:49 06/20/19 24 06/21/2023 COMP. METAB OLIC PANEL (14) calcium 9.2 mg/dL 8.7-10 .2 Not Available [facility] ([facility]) [address] [facility], [place], [address], 06/21/2023 09:13:49 06/20/19 24 06/21/2023 COMP. METAB OLIC PANEL (14) protein, total 7.0 g/dL 6.0-8. 5 Not Available [facility] ([facility]) [address] [facility], [place], [address], 06/21/2023 09:13:49 06/20/19 24 06/21/2023 COMP. METAB OLIC PANEL (14) albumin 4.6 g/dL 3.9-4. 9 Not Available [facility] ([facility]) [address] [facility], [place], [address], 06/21/2023 09:13:49 06/20/19 24 06/21/2023 COMP. METAB OLIC PANEL (14) globulin, total 2.4 g/dL 1.5-4. 5 Not Available [facility] ([facility]) [address] [place], [address], 06/21/2023 09:13:49 06/20/19 24 06/21/2023 COMP. METAB OLIC PANEL (14) A/G ratio 1.9 1.2-2. 2 Not Available [facility] ([facility]) [address] [facility], [place], [address], 06/21/2023 09:13:49 06/20/19 24 06/21/2023 COMP. METAB OLIC PANEL (14) bilirubin, total 0.3 mg/dL 0.0-1. 2 Not Available [facility] ([facility]) [address] [facility] [place], [address], 06/21/2023 09:13:49 06/20/19 24 06/21/2023 COMP. METAB OLIC PANEL (14) alkaline phosphatase 82 IU/L 44-121 Not Available [facility]) [address] [place], [address], 06/21/2023 09:13:49 06/20/19 24 06/21/2023 COMP. METAB OLIC PANEL (14) AST (SGOT) 22 IU/L 0-40 Not Available [facility] ([facility]) [address] [facility], [place], [address], 06/21/2023 09:13:49 06/20/19 24 06/21/2023 COMP. METAB OLIC PANEL (14) ALT (SGPT) 18 IU/L 0-32 Not Available [facility] ([facility]) [address] [place], [address], 06/21/2023 09:13:49 06/20/19 24 06/21/2023 CBC WITH DIFFE RENTI AL/PL ATELE T WBC 6.8 x10e3 /uL 3.4-10 .8 Not Available [facility] ([facility]) [address] [place], [address], 06/21/2023 09:13:50 06/20/19 24 06/21/2023 CBC WITH DIFFE RENTI AL/PL ATELE T RBC 3.88 x10e6 /uL 3.77-5 .28 Not Available [facility] ([facility]) [address] [place], [address], 06/21/2023 09:13:50 06/20/19 24 06/21/2023 CBC WITH DIFFE RENTI AL/PL ATELE T hemoglobin 12.1 g/dL 11.1-1 5.9 Not Available [facility] ([facility]) [address] [facility], [place], [address], 06/21/2023 09:13:50 06/20/19 24 06/21/2023 CBC WITH DIFFE RENTI AL/PL ATELE T hematocrit 35.4 % 34.0-4 6.6 Not Available [facility] ([facility]) [address] [facility], [place], [address], 06/21/2023 09:13:50 06/20/19 24 06/21/2023 CBC WITH DIFFE RENTI AL/PL ATELE T MCV 91 fL 79-97 Not Available [facility] ([facility]) [address] [facility], [place], [address], 06/21/2023 09:13:50 06/20/19 24 06/21/2023 CBC WITH DIFFE RENTI AL/PL ATELE T MCH 31.2 pg 26.6-3 3.0 Not Available [facility] ([facility]) [address] [place], [address], 06/21/2023 09:13:50 06/20/19 24 06/21/2023 CBC WITH DIFFE RENTI AL/PL ATELE T MCHC 34.2 g/dL 31.5-3 5.7 Not Available [facility] ([facility]) [address] [place], [address], 06/21/2023 09:13:50 06/20/19 24 06/21/2023 CBC WITH DIFFE RENTI AL/PL ATELE T RDW 12.7 % 11.7-1 5.4 Not Available [facility] ([facility]) [address] [place], [address], 06/21/2023 09:13:50 06/20/19 24 06/21/2023 CBC WITH DIFFE RENTI AL/PL ATELE T platelets 304 x10e3 /uL 150-45 0 Not Available [facility] ([facility]) [address] [facility], [place], [address], 06/21/2023 09:13:50 06/20/19 24 06/21/2023 CBC WITH DIFFE RENTI AL/PL ATELE T neutrophils 72 % notest ab. Not Available [facility] ([facility]) [address] [facility], [place], [address], 06/21/2023 09:13:50 06/20/19 24 06/21/2023 CBC WITH DIFFE RENTI AL/PL ATELE T lymphs 19 % notest ab. Not Available [facility] ([facility]) [address] [facility], [place], [address], 06/21/2023 09:13:50 06/20/19 24 06/21/2023 CBC WITH DIFFE RENTI AL/PL ATELE T monocytes 7 % notest ab. Not Available [facility] ([facility]) [address] [facility], [place], [address], 06/21/2023 09:13:50 06/20/19 24 06/21/2023 CBC WITH DIFFE RENTI AL/PL ATELE T eos 1 % notest ab. Not Available [facility] ([facility]) [address] [place], [address], 06/21/2023 09:13:50 06/20/19 24 06/21/2023 CBC WITH DIFFE RENTI AL/PL ATELE T basos 1 % notest ab. Not Available [facility] ([facility]) [address] [place], [address], 06/21/2023 09:13:50 06/20/19 24 06/21/2023 CBC WITH DIFFE RENTI AL/PL ATELE T neutrophils (absolute) 4.9 x10e3 /uL 1.4-7. 0 Not Available [facility] ([facility]) [address] [place], [address], 06/21/2023 09:13:50 06/20/19 24 06/21/2023 CBC WITH DIFFE RENTI AL/PL ATELE T lymphs (absolute) 1.3 x10e3 /uL 0.7-3. 1 Not Available [facility] ([facility]) [address] [facility], [place], [address], 06/21/2023 09:13:50 06/20/19 24 06/21/2023 CBC WITH DIFFE RENTI AL/PL ATELE T monocytes(ab solute) 0.4 x10e3 /uL 0.1-0. 9 Not Available [facility] ([facility]) [address] [facility], [place], [address], 06/21/2023 09:13:50 06/20/19 24 06/21/2023 CBC WITH DIFFE RENTI AL/PL ATELE T eos (absolute) 0.1 x10e3 /uL 0.0-0. 4 Not Available [facility] ([facility]) [address] [facility], [place], [address], 06/21/2023 09:13:50 06/20/19 24 06/21/2023 CBC WITH DIFFE RENTI AL/PL ATELE T baso (absolute) 0.0 x10e3 /uL 0.0-0. 2 Not Available [facility] ([facility]) [address] [facility], [place], [address], 06/21/2023 09:13:50 06/20/19 24 06/21/2023 CBC WITH DIFFE RENTI AL/PL ATELE T immature granulocytes 0 % notest ab. Not Available [facility] ([facility]) [address] [facility], [place], [address], 06/21/2023 09:13:50 06/20/19 24 06/21/2023 CBC WITH DIFFE RENTI AL/PL ATELE T immature grans (abs) 0.0 x10e3 /uL 0.0-0. 1 Not Available [facility] ([facility]) [address], [place], [address], 06/21/2023 09:13:50 01/31/2001/30/2024 trans -thor acic echoc ardio gram (TTE) (PROC ) No observ ation record ed. [place] [id number] [facility] [address], [place], [address], 02/02/2024 12:31:17 Result Notes None recorded. 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 Procedures Surgical History Date Name Laterality Status Provider Name and Address Organization Details Recorded Time 07/12/2023 Date of Last Pap Smear completed JOAQUIM PINO Attn: Accounting,[address] [facility], [place], [address], [place] [facility] 07/19/2023 12:47:50 Imaging Results Imaging Date Name Status LastModified by Organization Details LastModified Time 01/30/2024 trans-thoracic echocardiogram (TTE) (PROC) completed [address] [facility] [address], [place], [address], 02/02/2024 12:31:17 Procedure Notes None recorded. Medical Equipment None Reported. Allergies No known drug allergies Medications Name Sig Start Date Stop Date Status Note LastModified by Organization Details LastModified Time nifedipine ER 30 mg tablet,exte nded release 24 hr TAKE 1 TABLET BY MOUTH EVERY DAY 01/01 completed Not Available Not Available Not Available cyclobenzap rine 10 mg tablet 07/18 completed Not Available Not Available Not Available doxycycline hyclate 100 mg capsule TAKE 1 CAPSULE BY MOUTH TWICE DAILY 07/18 completed Not Available Not Available Not Available azithromyci n 250 mg tablet TAKE 2 TABLETS BY MOUTH FOR 1 DAY THEN TAKE 1 TABLET BY MOUTH DAILY FOR 4 DAYS 12/01 completed Not Available Not Available Not Available fluconazole 150 mg tablet TAKE 1 TABLET BY MOUTH NOW 12/01 completed Not Available Not Available Not Available metronidazo le 0.75 % (37.5 mg/5 gram) vaginal gel INSERT 1 APPLICATO RFUL VAGINALLY AT BEDTIME FOR 5 NIGHTS active Not Available Not Available No t Available prednisone 20 mg tablet 12/01 completed Not Available Not Available Not Available moxifloxaci n 400 mg tablet TAKE 1 TABLET BY MOUTH DAILY UNTIL ALL TAKEN 07/18 completed Not Available Not Available Not Available metronidazo le 500 mg tablet TAKE 1 TABLET BY MOUTH TWICE DAILY FOR 7 DAYS 12/01 completed Not Available Not Available Not Available amlodipine 5 mg tablet active Not Available Not Available Not Available doxycycline monohydrate 100 mg tablet TAKE 1 TABLET BY MOUTH TWICE DAILY 07/10 completed Not Available Not Available Not Available triamcinolo ne acetonide 0.1 % topical cream active Not Available Not Available Not Available amoxicillin 875 mg tablet Take 1 tablet every 12 hours by oral route. 12/01 completed Not Available Not Available Not Available nifedipine ER 60 mg tablet,exte nded release 24 hr TAKE 1 TABLET BY MOUTH EVERY DAY 2024 active Not Available Not Available Not Avai lable methylpredn isolone 4 mg tablets in a dose pack FOLLOW PACKAGE DIRECTION S 12/01 completed Not Available Not Available Not Available ondansetron 4 mg disintegrat ing tablet active Not Available Not Available N ot Available etonogestre l 0.12 mg-ethinyl estradiol 0.015 mg/24 hr vaginal ring INSERT 1 RING VAGINALLY EVERY MONTH 07/18 completed Not Available Not Available Not Available azithromyci n 500 mg tablet TAKE 2 TABLETS BY MOUTH STAT 12/01 completed Not Available Not Available Not Available drospirenon e 3 mg-ethinyl estradiol 0.02 mg tablet TAKE 1 TABLET BY MOUTH EVERY DAY 07/18 completed Not Available Not Available Not Available Nicci 30 mg tablet TAKE 1 TABLET BY MOUTH EVERY DAY 07/18 completed Not Available Not Available Not Available My Way 1.5 mg tablet TAKE 1 TABLET BY MOUTH 1 TIME 07/18 completed Not Available Not Available Not Available Estarylla 0.25 mg-35 mcg tablet Take 1 tablet every day by oral route. 07/18 completed Not Available Not Available Not Available Vitals Date Recorded Body height Body mass index (BMI) Body weight Body temperature Heart rate Oxygen saturation Oxygen saturation in Arterial blood by Pulse oximetry Systolic blood pressure Diastolic blood pressure Provider Name and Address Organization Details Last Updated DateTime 0 170.18 cm 34.5 kg/m2 71235.3 2 g 98.6 [degF] 85 /min 98 % 98 % 128 mm[Hg] 80 mm[Hg] Areli Sharma MA [facility] 0 16:19:21 Date Recorded Body height Provider Name an d Address Organization Details Last Updated DateTime 12/26/2019 170.18 cm Areli Sharma MA [facility] 2019 15:54:08 Date Recorded Body weight Body mass index (BMI) Body height Systolic blood pressure Diastolic blood pressure Provider Name and Address Organization Details Last Updated DateTime 11/08/2022 31105.58 g 33.2 kg/m2 170.18 cm 122 mm[Hg] 84 mm[Hg] Areli Sharma MA [facility] 3 12:45:53 Date Recorded Body height Body mass index (BMI) Body weight Heart rate Systolic blood pressure Diastolic blood pressure Provider Name and Address Organization Details Last Updated DateTime 4 170.18 cm 35.1 kg/m2 207665. 69 g 84 /min 128 mm[Hg] 82 mm[Hg] Areli Sharma MA [facility] 4 12:37:29 Social History Question Answer Notes LastModified by Organizat ion Details LastModified Time Tobacco Smoking Status Never Smoker Areli Sharma MA [facility] [place] [facility] 06/12/2019 16:20:49 What Is Your Level Of Alcohol Consumption? None Information not available 07/19/2023 What Is Your Level Of Caffeine Consumption? Moderate Information not available 06/12/2019 What Type Of Diet Are You Following? REGULAR Information not available 06/12/2019 Do You Or Have You Ever Used E-cigarettes Or Vape? Never Used Electronic Cigarettes Information not available 06/12/2019 Hard Of Hearing Or Deaf In One Or Both Ears? No Information not available 06/12/2019 Legally Blind In One Or Both Eyes? No Information no t available 06/12/2019 Live Alone Or With Others? With Others Information not available 06/12/2019 What Was The Date Of Your Most Recent Tobacco Screening? 07/19/2023 Information not available 07/19/2023 How Many Children Do You Have? 2 Information not available 06/12/2019 Are You Sexually Active? Yes Information not available 07/19/2023 Do You Have Smoke And Carbon Monoxide Detectors In Your Home? Yes Information not available 07/19/2023 Are You Passively Exposed To Smoke? No Information no t available 06/12/2019 Do You Or Have You Ever Used Smokeless Tobacco? Never Used Smokeless Tobacco Information not available 06/12/2019 How Much Tobacco Do You Smoke? No Information not available 06/12/2019 General Stress Level Low Information not available 06/12/2019 Do You Use Any Illicit Or Recreational Drugs? No Information not available 07/19/2023 Has Tobacco Cessation Counseling Been Provided? Yes Information not available 07/19/2023 On What Date Was Tobacco Cessation Counseling Provided? 07/19/2023 Information not available 07/19/2023 Sex: Unknown Functional Status Question Answer Note LastModified by Organization D etails LastModified Time Are you able to care for yourself? Yes Information n ot available 06/12/2019 Mental Status None recorded. Family History Relationship Description Onset Age of this Age Resolved Age Notes LastModified by Organization Details LastModified Time Father Hypertensive disorder Not available 2022 13:06:51 Mother Hypertensive disorder Not available 2022 13:06:51 Paternal Grandmother Hypertensive disorder Not available 2022 13:06:51 Paternal Grandfather Hypertensive disorder Not available 2022 13:06:51 Paternal Grandfather Coronary arterioscler osis Not available 2022 13:07:15 Sister Asthma 3 Not available 07/19/2023 12:48:52 Medical History Condition Response Coronary Artery Disease N Other N Atrial Fibrillation N High Blood Pressure N Kidney or Bladder Problems N Thyroid Problems N GI Problems N Depression N COPD N Blood Clots N Skin Problems N Anemia N Heart Attack (MA) N Anxiety Disorder N Diabetes N Muscle, Joint, or Bone Problems N Seizures/Epilepsy N Acid Reflux (GERD) N Cancer N Stroke N Asthma N Allergies N High Cholesterol N Hepatitis N Liver Disease N Headaches N Heart Failure N Osteoporosis N Gynecological History Statement/Question Response Flow Moderate Date of LMP 06/11/2019 Frequency of Cycle (Q days) 28 Menses Monthly Y Date of Last Pap Smear 07/12/2023 Duration of Flow (days) 4 Age at Menarche 16 Current Control Method None Age at First Child 20 LMP Definite Obstetrics History GPAL:G 2 P 2 0 0 2 Type Value Multiple Births 0 Full Term 2 Induced 0 Spontaneous 0 Premature 0 Living 2 Ectopics 0 Total 2 Past Encounters Encounter ID Performer Location Encounter Start Date Encounter Closed Date Diagnosis/Indication Diagnosis SNOMED-CT Code Diagnosis ICD10 Code Diagnosis Note [id number] [facility]O [facility] [address] [place] [address] 11/30/2018 17:06:06 12/01/2018 08:14:44 Family planning surveillance 042303729 Z30.09 discussed different options and she would prefer the pill. Negative test. - start pill packs [id number] [facility]QUIM PINO [facility] [address] [place] [address] 06/12/2019 16:11:05 06/13/2019 12:13:50 Sick child 352573010 Z63.79 patient presents for [place] paperwork. 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 She has missed days at work and needs it filled out. - papers filled and returned to patient [id number] Areli Sharma MA [facility] [address] [place] [address] 11/19/2019 10:01:04 11/20/2019 07:59:42 [id number] JOAQUIM PINO [facility] [address] [place] [address] 12/26/2019 15:53:03 12/28/2019 09:59:02 Sick child 370425447 Z63.79 patient presents for FMLA paperwork. She takes care of her son who is three and has frequent asthma exacerbati ons. She has missed days at work and needs it filled out. - patient bringing papers tomorrow [id number] JOAQUIM PINO [facility] [address] [place] [address] 11/08/2022 12:38:48 11/08/2022 14:44:05 Elevated blood-pressure reading without diagnosis of hypertension 501739609 R03.0 Advised to check BP regularly with a goal of <135/85, if BP consistent ly >140/90, advised to contact clinicBP: L 122/84, R 128/76Disc ussed DASH dietAdvise d weight loss and diet is best way to control BPAdvised 30 minutes of exercise minimum dailyAdvis ed tobacco, alcohol, caffeine all increase BPAdvised goal for BP is <140/90 [id number] JOAQUIM PINO [facility] [address] [place] [address] 07/19/2023 12:28:47 07/19/2023 13:19:19 Essential hypertension 37797587 I10 stop amlodipine and start nifedipine f/u in clinic one week for BP checkf/u wit obgyncheck BP at [facility] reviewed, normal 05037747 Z33.1 5 [place] Obesity 213893896 E66.9 advised healthy diet for pregnancyi ncrease water intakeincr ease proteinwat ch processed foods Health Concerns Section Related Observation LastModified by Organization Detai ls LastModified Time None Recorded Concern Status LastModified by Organization Details LastModified Time None Recorded Advance Directives Directive None Recorded Payers Encounter Date Sequence Insurance Name Policy Number Policy Medina Covered Member ID Medina Member ID Guarantor Name 06/12/2019 1 [facility] PRIOR TO 09/25/2020 (MEDICAID REPLACEMENT - HMO) Terrance Rios [id number] Terrance Rios 11/19/2019 1 [facility] PRIOR TO 09/25/2020 (MEDICAID REPLACEMENT - HMO) Terrance Rios [id number] Terrance Rios 12/26/2019 1 [facility] PRIOR TO 09/25/2020 (MEDICAID REPLACEMENT - HMO) Terrance Rios [id number] Terrance Rios 11/08/2022 1 [facility] ON OR AFTER 09/25/20 (MEDICAID REPLACEMENT - HMO) Terrance Rios [id number] Terrance Rios 07/19/2023 1 [facility] ON OR AFTER 09/25/20 (MEDICAID REPLACEMENT - HMO) Terrance Rios [id number] Terrance Rios 07/19/2023 2 [place] [employer] Terrance Rios [id number] Terrance Rios Notes Date Note Type Note Provider Name and Address Organization Details Recorded Time 06/12/2019 text/html Patient presents for FMLA paperwork patient needs fmla paper as she takes care of her son who has asthma exacerbations all the time. JOAQUIM PINO Attn: Accounting,[address] [facility], [place], [address], [facility] 06/12/2019 21:13:43 12/26/2019 text/html Patient presents for FMLA paperwork patient needs fmla paper as she takes care of her son who has asthma exacerbations all the time. Needs FMLA through winter as Osorio has most of his exacerbations. He has appointemnt next month with pulmonology. JOAQUIM PINO Attn: Accounting,[address] [facility], [place], [address], [facility] 12/26/2019 16:37:48 11/08/2022 text/html Terrance is a 32 YO F here for my blood pressure has been high. last seen in clinic 2019 Pt went to Oct 28 in [place] for viral illness and was told her BP was 160/102. She went to [facility] ER on Tuesday with headache and elevated BP (160/97). BP at [facility] was 157/106. They gave her an IV but no labs were drawn. She does not smoke cigarettes, drink alcohol. She does have family history on both sides of elevated BP. Paternal grandfather has stent placed. She continues to have elevated BP at home. denies cp, sob, palpitations. JOAQUIM PINO Attn: Accounting,[address] [facility], [place], [address], [facility] 11/08/2022 14:00:30 07/19/2023 text/html Terrance is a 33 YO F here for BP refills She has been taking medication as prescribed but did run out and BP spiked. She never scheduled f/u after last acute visit. she has not checked BP at home. She stopped taking ocp and found out recently she is 5 weeks . she has not seen ob yet but will make appointment at Dr Isaacs office. denies cp, sob, LE edema, headaches. JOAQUIM PINO Attn: Accounting,[address] [facility], [place], [address], [facility] 07/19/2023 14:07:26 OBGyn Episode No OBEpisode recorded.
--- OUTSIDE RECORDS SUMMARY | 2024-05-28 09:44 | XMS_ITS | Referral Summary ---
Author Organization [facility] Address [address] [place] [address] Care Team Providers Care Spanish Interpreter/Translator Name Role Phone Unavailable Primary Care Provider Unavailabl e Source Comments [facility],non-owned Affiliates and Associated Physician Practices is [facility] consisting of ambulatory clinics and hospital sitesin [place], [place], [place] and [place]. This disclosure is being madepursuant to the Care Everywhere program and may not contain all information available regarding this patient. Last updated 17.[facility] Encounters Date Type Department Care Team Description 05/28/2024 7:30 AM SENIOR BUSINESS BROKER Hospital Encounter [facility] [address] [place] [phone] Benson Myles MD 05/21/2024 7:30 AM SENIOR BUSINESS BROKER - 05/21/2024 11:59 PM SENIOR BUSINESS BROKER Hospital Encounter [facility] [address] [place] [phone] Benson Myles MD Discharge Disposition: Home or Self Care 05/14/2024 7:30 AM SENIOR BUSINESS BROKER - 05/14/2024 11:59 PM SENIOR BUSINESS BROKER Hospital Encounter [facility] [address] [place] [phone] Head, Cee Recio MD Discharge Disposition: Home or Self Care 05/09/2024 7:39 AM SENIOR BUSINESS BROKER - 05/09/2024 11:59 PM SENIOR BUSINESS BROKER Hospital Encounter [facility] [address] [place] [phone] Nimisha Fernandez MD POWERHOUSE ELECT[employer]ICIAN APPRENTICE Discharge Disposition: Home or Self Care 05/07/2024 7:30 AM SENIOR BUSINESS BROKER - 05/07/2024 11:59 PM SENIOR BUSINESS BROKER Hospital Encounter [facility] [address] [place] [phone] Cee Alvarado MD Discharge Disposition: Home or Self Care 04/30/2024 7:30 AM SENIOR BUSINESS BROKER - 04/30/2024 11:59 PM SENIOR BUSINESS BROKER Hospital Encounter [facility] [address] [place] [phone] Miladis Mims MD Discharge Disposition: Home or Self Care 04/23/2024 7:30 AM SENIOR BUSINESS BROKER - 04/23/2024 11:59 PM SENIOR BUSINESS BROKER Hospital Encounter [facility] [address] [place] [phone] Benson Myles MD Discharge Disposition: Home or Self Care 04/16/2024 2:26 PM SENIOR BUSINESS BROKER - 04/16/2024 11:59 PM SENIOR BUSINESS BROKER Hospital Encounter [facility] [address] [place] [phone] Head, Cee Recio MD Discharge Disposition: Home or Self Care 04/11/2024 7:26 AM SENIOR BUSINESS BROKER - 04/11/2024 11:59 PM SENIOR BUSINESS BROKER Hospital Encounter [facility] [address] [place] [phone] Benjamin Storey MD Discharge Disposition: Home or Self Care 03/19/2024 Orders Only [facility] [address] [place] [phone] Alessandra Mesa, LABORATORY CUREMAN-[employer]ER 03/14/2024 7:30 AM SENIOR BUSINESS BROKER - 03/14/2024 11:59 PM SENIOR BUSINESS BROKER Hospital Encounter [facility] [address] [place] [phone] Benjamin Storey MD Discharge Disposition: Home or Self Care from Last 3 Months Allergies Active Allergy Reactions Criticality Noted Date [...] on last me nstrual period of 08/29/2023 Social History Tobacco Use Types Packs/Day Years [...] Sex Assigned at Female 05/07/2024 10:13 AM SENIOR BUSINESS BROKER Gender Identity Female 05/07/2024 10:13 AM SENIOR BUSINESS BROKER Sexual Orientation Straight 05/07/2024 10 :13 AM SENIOR BUSINESS BROKER Last Filed Vital Signs Vital Sign Reading Time Taken Comments Blood Pressure 118/72 05/28/2024 8:28 AM SENIOR BUSINESS BROKER Pulse 95 05/28/2024 8:28 AM SENIOR BUSINESS BROKER Temperature - - Respiratory Rate 18 01/18/2024 8:10 AM CDT Oxygen Saturation - - Inhaled Oxygen Concentration - - Weight 106.1 kg (233 lb 14.4 oz) 05/09/2024 8:05 AM SENIOR BUSINESS BROKER Height 170.2 cm (5' 7 ) 03/14/2024 8:11 AM SENIOR BUSINESS BROKER Body Mass Index 36.63 03/14/2024 8:11 AM SENIOR BUSINESS BROKER Plan of Treatment Not on file Procedures Procedure Name Priority Date/Time Associated Diagnosis Comments BIOPHYSICAL PROFILE W NST Routine 05/28/2024 7:27 AM SENIOR BUSINESS BROKER Supervision of high-risk , unspecified trimester (HCC) Advanced maternal age in multigravida, second trimester (HCC) Hx of preeclampsia, prior , currently , second trimester (HCC) Prediabetes in mother during (HCC) 39 weeks gestation of (HCC) Class 1 obesity without serious comorbidity in adult, unspecified BMI, unspecified obesity type Pre-existing hypertension during in second trimester, unspecified pre-existing hypertension type (HCC) BIOPHYSICAL PROFILE W NST Routine 05/21/2024 7:28 AM SENIOR BUSINESS BROKER Supervision of high-risk , unspecified trimester (HCC) Advanced maternal age in multigravida, second trimester (HCC) Hx of preeclampsia, prior , currently , second trimester (HCC) Prediabetes in mother during (HCC) Class 1 obesity without serious comorbidity in adult, unspecified BMI, unspecified obesity type Pre-existing hypertension during in second trimester, unspecified pre-existing hypertension type (HCC) BIOPHYSICAL PROFILE W NST Routine 05/14/2024 7:30 AM SENIOR BUSINESS BROKER Pre-existing essential hypertension during in third trimester (HCC) Advanced maternal age in multigravida, third trimester (HCC) Hx of preeclampsia, prior , currently , second trimester (HCC) Obesity affecting , antepartum, unspecified obesity type (HCC) Prediabetes in mother during (HCC) Encounter for ultrasound to assess growth (HCC) Encounter for screening (HCC) BIOPHYSICAL PROFILE W NST Routine 05/07/2024 7:43 AM SENIOR BUSINESS BROKER Pre-existing essential hypertension during in third trimester (HCC) Advanced maternal age in multigravida, third trimester (HCC) Hx of preeclampsia, prior , currently , second trimester (HCC) Obesity affecting , antepartum, unspecified obesity type (HCC) Prediabetes in mother during (HCC) Encounter for ultrasound to assess growth (HCC) Encounter for screening (HCC) BIOPHYSICAL PROFILE W NST Routine 04/30/2024 7:34 AM SENIOR BUSINESS BROKER Pre-existing essential hypertension during in third trimester (HCC) Advanced maternal age in multigravida, third trimester (HCC) Hx of preeclampsia, prior , currently , second trimester (HCC) Obesity affecting , antepartum, unspecified obesity type (HCC) Prediabetes in mother during (HCC) Encounter for ultrasound to assess growth (HCC) Encounter for screening (HCC) BIOPHYSICAL PROFILE W NST Routine 04/23/2024 7:37 AM SENIOR BUSINESS BROKER Pre-existing essential hypertension during in third trimester (HCC) Advanced maternal age in multigravida, third trimester (HCC) Hx of preeclampsia, prior , currently , second trimester (HCC) Obesity affecting , antepartum, unspecified obesity type (HCC) Prediabetes in mother during (HCC) Encounter for ultrasound to assess growth (HCC) Encounter for screening (HCC) BIOPHYSICAL PROFILE W NST Routine 04/16/2024 3:35 PM SENIOR BUSINESS BROKER Pre-existing essential hypertension during in third trimester (HCC) Advanced maternal age in multigravida, third trimester (HCC) Hx of preeclampsia, prior , currently , second trimester (HCC) Obesity affecting , antepartum, unspecified obesity type (HCC) Prediabetes in mother during (HCC) Encounter for ultrasound to assess growth (HCC) Encounter for screening (HCC) BIOPHYSICAL PROFILE W NST Routine 04/11/2024 7:28 AM SENIOR BUSINESS BROKER Pre-existing essential hypertension during in third trimester (HCC) Advanced maternal age in multigravida, third trimester (HCC) Hx of preeclampsia, prior , currently , second trimester (HCC) Obesity affecting , antepartum, unspecified obesity type (HCC) Prediabetes in mother during (HCC) Encounter for ultrasound to assess growth ([facility]) Encounter for screening ([facility]) PROTEIN CREATININE RATIO URINE RANDOM PNL 03/19/2024 8:19 AM SENIOR BUSINESS BROKER TSH REFLEX FREE T4 03/19/2024 8: 19 AM SENIOR BUSINESS BROKER SONOGRAM - COMPLETE Routine 03/14/2024 7 :36 AM SENIOR BUSINESS BROKER Supervision of high-risk , unspecified trimester (HCC) Pre-existing essential hypertension during in second trimester ([facility]) Advanced maternal age in multigravida, second trimester ([facility]) Hx of preeclampsia, prior , currently , second trimester (HCC) Obesity affecting , antepartum, unspecified obesity type ([facility]) Prediabetes in mother during ([facility]) 28 weeks gestation of ([facility]) from Last 3 Months Results * BIOPHYSICAL PROFILE W NST (05/28/2024 7:27 AM SENIOR BUSINESS BROKER) Only the most recent of8 resultswithin the time period is included. Linked Results Indication ======== CHTN on nifedipine, Pre-Diabetic A1C = 5.8%, Class I obesity AMA Prior preeclampsia 11/21/2023 Creatinine 0.65 mg/dL, Proteinuria 490 mg/day 01/02/2024 Creatinine 1.54 mg/dL, Proteinuria 156 mg/day 01/09/2024 Creatinine 0.53 mg/dL 03/19/2024 Proteinuria PCR 0.140 mg/mg History ====== OB History 6. Para 2 [id number] 1. live 2010. Gest. age 39 w [...] up as clinically indicated Coding ====== Procedures 63793: US Uterus Limited 04513: Biophysical Profile W NST [employer] PACS Anatomical Region Laterality Modality Other 05/28/2024 7:27 AM SENIOR BUSINESS BROKER Yolie Isaacs MD [facility] ORDERABLES * TSH REFLEX FREE T4 (03/19/2024 8:19 AM SENIOR BUSINESS BROKER) TSH with Reflex FT4 0.55 mIU/L [facility] Comment: Reference Range > or = 20 Years 0.40-4.50 Ranges First trimester 0.26-2.66 Second trimester 0.55-2.73 Third trimester 0.43-2.91 Test Performed at: [email or web address] [id number] KENYA ALEX MD 03/19/2024 8:19 AM SENIOR BUSINESS BROKER 03/19/2024 8:19 AM SENIOR BUSINESS BROKER Alessandra Mesa APRN-[facility] - CHEMI STRY ORDERABLES Performing Organization Address [facility] Co de Phone Number [facility] [phone] [place] [phone] * PROTEIN CREATININE RATIO URINE RANDOM PNL (03/19/2024 8:19 AM SENIOR BUSINESS BROKER) Creatinine Urine 150 20 - 275 mg/dL [facility] Protein/Creatinine Ratio 140 24 - 184 mg/g creat [facility] Protein/Creatinine Ratio 0.140 0.024 - 0.184 mg/mg creat [facility] Protein Random Urine 21 5 - 24 mg/dL [facility] Comment: Test Performed at: [email or web address] [address] KENYA ALEX MD 03/19/2024 8:19 AM SENIOR BUSINESS BROKER 03/19/2024 8:19 AM SENIOR BUSINESS BROKER Alessandra Mesa APRN-[facility] - URINE CHEMISTRY ORDERABLES Performing Organization Address [facility] Co de Phone Number [address] [address] * SONOGRAM - COMPLETE (03/14/2024 7:36 AM SENIOR BUSINESS BROKER) Linked Results Indication ======== CHTN on nifedipine, Pre-Diabetic A1C = 5.8%, Class I obesity AMA 35 years at [facility] with low-risk cf-DNA Prior H/O preeclampsia 11/21/2023 Creatinine 0.65 mg/dL, proteinuria 490 mg/day 01/02/2024 Creatinine 1.54 mg/dL, proteinuria 156 mg/day 01/09/2024 Creatinine 0.53 mg/dL History ====== OB History 6. Para 2 [id number] 1. live 2010. Gest. age 39 w + 0 d. Weight 2,331 g. Sex of child: female. Details: 2. live 2017. Gest. age 39 w + 0 d. [...] 3 lb 0 oz EFW by Hadlock ([id number]) appropriate Growth Overview Exam date [place] BPD [...] BPP at 32 weeks Coding ====== Procedures [id number]: US Preg Uterus Follow Up [facility] PACS Anatomical Region Laterality Modality Other 03/14/2024 7:36 AM SENIOR BUSINESS BROKER Yolie Isaacs MD [facility] ORDERABLES from Last 3 Months Terrance Rios Personal/Family Self 1990
--- OUTSIDE RECORDS SUMMARY | 2024-05-28 09:44 | XMS_ITS | Clinical Summary ---
Author Organization [facility] Address [address] [place] [id number] Care Team Providers Care Route Jumper Name Role Phone Ml Griffin Primary Care [...] on file Sexual Orientation Not on file Obstetrics History Last Filed Vital Signs Vital Sign Reading [...] 09/22/2023 2:25 PM CDT Plan of Treatment Health Maintenance Due Date Last Done Comments Cervical Cancer Screening 1989 Depression Screening 1989 Hepatitis C Screening 1989 DTaP/Tdap/Td Vaccine (1 - Tdap) 2000 Varicella Vaccines (1 of 2 - 13+ 2-dose series) 2002 Hepatitis B Screening 2007 Regular Well Visit/Exam 18-64 2007 Covid-19 Vaccine (3 - 2023-2 5 season) 2023 07/11/2020, 06/13/2020 Influenza Vaccine (#1) 2023 HPV Vaccines Aged Out No longer eligi ble based on patient's age to complete this topic Pneumococcal vaccine <65 Aged Out No longer eligible based on patient's age to complete this topic Insurance REPLACED BY [facility] MRA Care Teams Route Jumper Relationship Specialty Start Date End Date Ml Griffin PA PCP - General Physician [employer]ip[employer] Placing Supervisor 05/11/22
--- OUTSIDE RECORDS SUMMARY | 2024-05-28 09:44 | XMS_ITS | Encounter Summary ---
Author Organization [facility] Address [address] [facility] [place] [address] [place] [address] Care Team Providers Care Director Of In Service Education Name Role Phone Ml Griffin Primary Care Provider + Encounter Details Date Type Department Care Team (Late st Contact Info) Description 05/24/2016 Orders Only [facility] ProviderJuliana MD [address] [place] [id number] Social History Tobacco Use Types Packs/Day Years Used Date Smoking Tobacco: Never Assessed Comments Unknown Sex and Gender Information Value Date Recorded Sex Assigned at Not on file Legal Sex Female 1:34 PM CDT Gender Identity Not on file Sexual Orientation Not on file documented as of this encounter Plan of Treatment Not on file documented as of this encounter Procedures Procedure Name Priority Date/Time Associated Diagnosis Comments CARDIOLOGY REPORT 05/24/2016 documented in this encounter Results * CARDIOLOGY REPORT (05/24/2016) Anatomical Region Laterality Modality Other Narrative 05/24/2016 Ordered by an unspecified provider. Historical Provider [facility] KAYLEE VELAZQUEZ Final Result documented in this encounter Visit Diagnoses Not on filedocumented in this encounter Additional Health Concerns Infection Onset Date Last Indicated Resolved Time COVID: Suspected 11/05/2022 11/05/2022 11/05/2022 7:46 PM CDT documented as of this encounter Care Teams Director Of In Service Education Relationship Specialty Start Date End Date Ml Griffin PA PCP - General Physician Multimedia Author 05/11/22 documented as of this encounter
[2024-05-28 10:15] LABS: Basophils Percent Auto 0.2 % (0.2-1.2); Eosinophils Percent Auto 0.2 % (0-4.4); Hematocrit 31.7 % (37.0-47.0); Hemoglobin 10.7 g/dL (12.0-15.0); Immature Granulocyte Absolute 0.13 K/mm3 (0.00-0.031); Immature Granulocyte Percent A 2.1 % (0-0.5); Immature Platelet Fraction Pct 6.8 % (0.9-11.2); Lymphocytes Absolute Auto 1.38 K/mm3 (0.9-3.2); Lymphocytes Percent Auto 21.9 % (18.3-44.2); Mean Corpuscular HGB Conc 33.8 g/dl (32-36); Mean Corpuscular Hemoglobin 30.6 pg (26-34); Mean Corpuscular Volume 90.6 fl (80-100); Mean Platelet Volume 10.9 fl (7.4-10.4); Monocytes Absolute Auto 0.3 K/mm3 (0.1-0.6); Monocytes Percent Auto 5.4 % (2.6-8.5); Neutrophils Absolute Auto 4.4 K/mm3 (1.3-6.7); Neutrophils Percent Auto 70.2 % (45.5-73.1); Platelet Count Result 141 k/mm3 (150-375); Red Cell Distribution Width 14.9 % (11.5-14.5); White Blood Count 6.3 K/mm3 (4.5-10.0)
[2024-05-28 10:20] LABS: Alanine Aminotransferase 39 U/L (6-35); Albumin Level 3.3 g/dL (3.5-5.1); Alkaline Phosphatase 178 U/L (38-126); Anion Gap 10 mmol/L (4-12); Aspartate Amino Transferase 30 U/L (14-36); Bilirubin,Total 0.4 mg/dL (0.2-1.3); Blood Urea Nitrogen 5 mg/dL (7-17); Calcium 9.1 mg/dL (8.4-10.2); Carbon Dioxide 18 mmol/L (22-30); Chloride 108 mmol/L (98-107); Estimated Glomerular Filt Rate > 60; Glucose 96 mg/dL (65-110); Potassium 3.6 mmol/L (3.4-5.0); Sodium 136 mmol/L (137-145); Uric Acid 4.7 mg/dL (2.5-7.5)
--- NOTE | 2024-05-28 10:30 | LDADM ---
This patient, Terrance Rios, was admitted to Labor/Delivery/Recovery 104 on 05/28/24 at 08:39. Plans for labor, pain management and were discussed with patient. Patient/family oriented to hospital policies and general routines including ID bracelet, bed and alarms, visiting hours, pain management, procedures, bathroom and other care routines, personal items, smoking policy, room service/diet and guest tray routines, security routines, and visiting hours. Patient/Family are encouraged to report perceived risks to care and to ask questions if they do not understand what they are told or what they should do. See OBIX for further documentation.
[2024-05-28] MEDS: DINOPROSTONE 10 MG VAG INSERT VAGINAL (10:41)
[2024-05-28 11:01] LABS: HIV 1/2 Ab P24 Ag Result Negative (Negative)
[2024-05-28 11:03] LABS: Syphilis IgG/IgM Antibody Negative (Negative)
--- NOTE | 2024-05-28 12:52 | P.HP_ITS ---
H&P: HPI History of Present Illness Date/Time: 05/28/24 12:52 Chief Complaint: Abnormal testing Narrative: 34 y/o at 39 weeks with chronic HTN. Has been seeing [facility]. Had a prior complicated by preeclampsia. She also is pre-diabetic. At NST today the tracing was abnormal. BPP 8/8. [facility] recommended she to to [place] for induction of labor. She is a patient of Dr. Isaacs, who is out of town. GBS neg. Ultrasound exam shows cephalic presentation, normal KORI. Review of Systems Review of Systems: All systems reviewed & are unremarkable except as noted in HPI and below PMFSH Past Medical History Medical History History of prediabetes Surgical History Surgical History History of termination of x3 Social History Social History Smoking status: Never smoker Substance use: never Do You Feel Safe in your Home?: Yes Lack of Transportation: No Lack of Food: Never True Current Housing: I Have Housing Concerned About Future Housing: No Difficulty Paying Gas/Electric Bills: No Difficulty Paying for Meds: No Currently Unemployed: No Education: High School Diploma/GED Difficulty w/ Childcare or Family Care: No Spiritual care concerns: No Meds Home Medications and Allergies Home Medications ?Medication ?Instructions ?Recorded ?Confirmed ?Type aspirin 162.5 mg capsule,extended 162.5 mg PO DAILY 04/19/24 05/28/24 History release 24 hr ergocalciferol (vitamin D2) 400 375 mcg PO DAILY 04/19/24 05/28/24 History unit capsule ferrous sulfate 325 mg (65 mg 325 mg PO DAILY 04/19/24 05/28/24 History iron) tablet nifedipine 60 mg tablet,extended 60 mg PO DAILY 04/19/24 05/28/24 History release 24 hr vit no.95-ferrous 1 tablet PO DAILY 04/19/24 05/28/24 History fumarate 28 mg-folic acid 800 mcg tablet () Allergies Allergy/AdvReac Type Severity Reaction Status Date / Time shrimp Allergy Swelling Verified 05/28/24 10:30 of Lip/Tongue/Throat Vital Signs Vital Signs - 24 hr 05/28/24 10:50 05/28/24 12:39 Pulse Rate 86 Blood Pressure 127/76 Oxygen Delivery Room Air Exam Const: Orientation/consciousness: patient oriented x3 Other: Well-developed, well-nourished female in no acute distress. Neck: Thyroid: thyroid normal Lymphatic: no lymphadenopathy noted (in neck, axilla or inguinal nodes) Resp: Effort & Inspection: normal respiratory effort Auscultation: clear to auscultation bilaterally Cardio: Rate: regular rate Rhythm: regular rhythm Heart sounds: S1 normal heart sound present and S2 normal heart sound present GI: Other: ABD: Soft, nontender, gravid. NST reactive. TOCO: no contractions. No guarding or rebound tenderness. No hepatosplenomegaly. : General: Yes no CVA tenderness Other: Cervix 1//-3 per RN. Back/Spine/Pelvis: Back: no CVA tenderness Skin: General skin exam: normal color and no rashes or lesions noted Neuro: General: patient oriented x3 Extrem: Other: Extremities: nontender with no edema Psych: Mental Status: mental status grossly normal Affect: normal affect H&P: Results Labs Labs: Short CBC 05/28/24 Range/Units 09:29 WBC 6.3 (4.5-10.0) K/mm3 Hgb 10.7 L (12.0-15.0) g/dL Hct 31.7 L (37.0-47.0) % Plt Count 141 L (150-375) k/mm3 BMP 05/28/24 09:29 Sodium 136 L Potassium 3.6 Chloride 108 H Carbon Dioxide 18 L BUN 5 L Creatinine 0.44 L Glucose 96 Calcium 9.1 Liver Function 05/28/24 Range/Units 09:29 Total Bilirubin 0.4 (0.2-1.3) mg/dL AST 30 (14-36) U/L ALT 39 H (6-35) U/L Alkaline Phosphatase 178 H (38-126) U/L Albumin 3.3 L (3.5-5.1) g/dL Assessment and Plan Assessment and plan (1) Chronic hypertension affecting : Code(s): O10.919 - Unspecified pre-existing hypertension complicating , unspecified trimester Status: Acute Assessment and Plan: A: IUP at 39 weeks with CHTN, and a history of preeclampsia, now with abnormal NST. [facility] has recommended delivery. P: Cervidil. Continue nifedipine XL 60 mg daily. Anticipate . (2) Non-reassuring electronic monitoring tracing: Code(s): O36.8390 - Maternal care for abnormalities of the heart rate or rhythm, unspecified trimester, not applicable or unspecified Status: Acute (3) Term : Code(s): Z34.90 - Encounter for supervision of normal , unspecified, unspecified trimester Status: Acute
--- NOTE | 2024-05-28 19:18 | WPDANESEPP ---
Anes - Eval Pre Procedure Procedure: labor pain management Date/Time: 05/28/24 19:18 Surgeon: Ferny Preop Diagnosis: pain during labor Pre Op Diagnosis: IOL Patient Data Age: 34 Gender: F Height: 1.7 m Weight: 105 kg Last Vital Signs Temp 97.4 F L 05/28/24 17:59 Pulse 87 05/28/24 18:00 BP 130/79 05/28/24 18:00 O2 Del Method Room Air 05/28/24 10:50 Allergies Allergy/AdvReac Type Severity Reaction Status Date / Time shrimp Allergy Swelling Verified 05/28/24 10:30 of Lip/Tongue/Throat Home Medications ?Medication ?Instructions ?Recorded ?Confirmed ?Type aspirin 162.5 mg capsule,extended 162.5 mg PO DAILY 04/19/24 05/28/24 History release 24 hr ergocalciferol (vitamin D2) 400 375 mcg PO DAILY 04/19/24 05/28/24 History unit capsule ferrous sulfate 325 mg (65 mg 325 mg PO DAILY 04/19/24 05/28/24 History iron) tablet nifedipine 60 mg tablet,extended 60 mg PO DAILY 04/19/24 05/28/24 History release 24 hr vit no.95-ferrous 1 tablet PO DAILY 04/19/24 05/28/24 History fumarate 28 mg-folic acid 800 mcg tablet () Laboratory Tests 05/28/24 05/28/24 09:28 09:29 WBC 6.3 K/mm3 (4.5-10.0) RBC 3.50 L M/mm3 (4.2-5.4) Hgb 10.7 L g/dL (12.0-15.0) Hct 31.7 L % (37.0-47.0) MCV 90.6 fl (80-100) MCH 30.6 pg (26-34) MCHC 33.8 g/dl (32-36) RDW 14.9 H % (11.5-14.5) Plt Count 141 L k/mm3 (150-375) MPV 10.9 H fl (7.4-10.4) Immature Gran % (Auto) 2.1 H % (0-0.5) Neut % (Auto) 70.2 % (45.5-73.1) Lymph % (Auto) 21.9 % (18.3-44.2) Love % (Auto) 5.4 % (2.6-8.5) Eos % (Auto) 0.2 % (0-4.4) Baso % (Auto) 0.2 % (0.2-1.2) Lymph # (Auto) 1.38 K/mm3 (0.9-3.2) Love # (Auto) 0.3 K/mm3 (0.1-0.6) Eos # (Auto) 0.0 K/mm3 (0-0.3) Baso # (Auto) 0.0 K/mm3 (0.0-0.1) Abs Immat Gran (auto) 0.13 H K/mm3 (0.00-0.031) Absolute Neuts (auto) 4.4 K/mm3 (1.3-6.7) Absolute Nucleated RBC 0.000 K/mm3 (0.0-0.012) Nucleated RBC % 0.0 % (0.0-0.2) % Immature Plt Fraction 6.8 % (0.9-11.2) Sodium 136 L mmol/L (137-145) Potassium 3.6 mmol/L (3.4-5.0) Chloride 108 H mmol/L (98-107) Carbon Dioxide 18 L mmol/L (22-30) Anion Gap 10 mmol/L (4-12) BUN 5 L mg/dL (7-17) Creatinine 0.44 L mg/dL (0.7-1.0) Estim Creat Clear Calc Not Reportable Estimated GFR > 60 (59 - ) Glucose 96 mg/dL (65-110) Uric Acid 4.7 mg/dL (2.5-7.5) Calcium 9.1 mg/dL (8.4-10.2) Total Bilirubin 0.4 mg/dL (0.2-1.3) AST 30 U/L (14-36) ALT 39 H U/L (6-35) Alkaline Phosphatase 178 H U/L (38-126) Total Protein 6.0 L g/dL (6.3-8.2) Albumin 3.3 L g/dL (3.5-5.1) Syphilis IgG/IgM Ab Negative (Negative) RPR Titer Cancelled RPR Cancelled RPR Titer Add Testing Cancelled T.pallidum Ab (FTA-ABS) Cancelled T.pall Ab(FTA-ABS)Reflex Cancelled HIV 1&2 Ab/P24 Ag 4thGn Negative (Negative) Blood Type O Positive Antibody Screen Negative Other studies: [place] [address] [place], [place] [id number] ECHO Signed Patient: Terrance Rios : 1990 MR#: [id number] Age: 33 Acct:[id number] Loc: [facility] ADM Date: 01/30/24Attending Dr: Jesusita Linder M.D. Ordering Physician: Jesusita Linder M.D. Date of Service: 01/30/24 Procedure(s): CA echo doppler color flow Accession Number(s): [id number] cc: Elias, Ml Pham PA-C; Jesusita Linder M.D.~ Patient Info Name: Terrance Rios Age: 33 years : 1990 Gender: Female Ht: 67 in Wt: 227 lbs BSA: 2.25 m2 HR: 94 bpm BP: 131 / 83 mmHg Heart Rhythm: Sinus Rhythm Technical Quality: Good Exam Date: 01/30/2024 4:15 PM Exam Location: Echo Lab Patient Status: Outpatient Admit Date: 01/30/2024 Staff Ordering Physician: Jesusita Linder MD Control Operator Flow Coat: Jackie Dalal RDCS Attending Provider: Jesusita Linder MD Referring Physician: Kailash HARE; Exam Type: CA echo doppler color flow Study Info Indications - HX OF CARDIOMYOPATHY Complete two-dimensional, color flow and Doppler transthoracic echocardiogram is performed. Summary 1. Left ventricular chamber dimension is normal. 2. Left ventricular systolic function is normal, estimated at 60-65%. 3. The left ventricular diastolic function is normal. 4. Right ventricular systolic function is normal. 5. There is mild mitral valve regurgitation. 6. There is mild tricuspid valve regurgitation. Patient hx anesthesia problems: none Family hx anesthesia problems: none Results Review: All pre-operative results and documents have been reviewed as part of the pre-operative evaluation. [facility] Past Medical History Medical History Cardiomyopathy History of prediabetes Surgical History Surgical History History of termination of x3 Social History Social History Smoking status: Never smoker Substance use: never Do You Feel Safe in your Home?: Yes Lack of Transportation: No Lack of Food: Never True Current Housing: I Have Housing Concerned About Future Housing: No Difficulty Paying Gas/Electric Bills: No Difficulty Paying for Meds: No Currently Unemployed: No Education: High School Diploma/GED Difficulty w/ Childcare or Family Care: No Spiritual care concerns: No Exam Day of Procedure 05/28/24 19:18 Patient weight: obese (bmi 36.3)
[2024-05-28] MEDS: LACTATED RINGERS 1,000 ML 125 ML IV CONT ×2 (21:05→22:02)
[2024-05-28] MEDS: OXYTOCIN 30 UNITS/NS 500 ML 30 UNITS/500 ML BAG IV CONT (23:30)
[2024-05-29] VITALS (160 sets, daily range): BP systolic 91–204; BP diastolic 48–172; PULSE 65–125; RESP 18; TEMP 36.3–37; O2SAT 93–100
[2024-05-29] MEDS: ONDANSETRON INJ 4 MG/2 ML VIAL IV PUSH ×2 (01:08→09:41)
[2024-05-29] MEDS: LACTATED RINGERS 1,000 ML 125 ML IV CONT ×2 (04:01→12:01)
--- NOTE | 2024-05-29 08:40 | PM.OBPNLAB ---
Pain Control Date/time seen: 05/29/24 08:40 Comfortable with epidural. Pelvic Exam Dilation (cm): 3 Effacement (%): 50 station: -2 Comments: AROM with clear fluid. IUPC placed. Contractions Contraction frequency: 3 Contraction pattern: Regular Status status: Category l Assessment and Plan Comments: A: IUP at 39 1/7 weeks with CHTN, abnormal FHR tracing yesterday, here for induction of labor. S/p Cervidil, now receiving pitocin. P: Continue labor. Hold nifedipine for now. Anticipate .
--- NOTE | 2024-05-29 12:50 | PM.OBPNLAB ---
Pain Control Date/time seen: 05/29/24 12:50 Comfortable with epidural. Pelvic Exam Dilation (cm): 4 Effacement (%): 80 station: -2 Contractions Contraction frequency: 3 Contraction pattern: Regular Status status: Category l Assessment and Plan Comments: Continue labor.
[2024-05-29] MEDS: SODIUM CHLORIDE 0.9% IV 300 ML 600 ML I-UTERINE (15:36)
--- NOTE | 2024-05-29 17:51 | P.PCNOB_ITS ---
OB - Vaginal Delivery Note Procedure Delivery date: 05/29/24 Events: Chronic Hypertension Induction method: Per Cervidil Protocol Delivery augmentation: Rupture of Membranes and Pitocin Delivery monitor: External FHT, External Uterine and Internal Uterine Route of delivery: Episiotomy description: None Laceration Description: None Specimen: Yes (cord blood, placenta) Quantitative Blood Loss (ml): 220 Anesthesia type: Epidural Disposition: PACU Complications: None Narrative: 34 y/o at 39 1/7 weeks gestation who presented to the hospital for induction of labor after a nonreassuring NST for chronic HTN. She had been taking nifedipine XL 60 mg daily. Cervidil was placed, then withdrawn after 12 hours. Oxytocin was administered intravenously. Amniotomy was performed with return of clear fluid. She received an epidural for pain control. Her labor progressed and her cervix dilated completely. She pushed with good effort and delivered the 's head to the perineum. A nuchal cord was splinted and the body delivered. The cord was reduced and the nose and mouth were bulb suctioned. After a delay, the cord was clamped and cut. The was handed off the field. Cord blood was collected. The placenta delivered spontaneously and was grossly normal in appearance. The usual 3 vessel cord was noted. There were no lacerations. The patient was taken to recovery room in stable condition. The went to the nursery in stable condition. I was present and scrubbed for the entire delivery. [place] Baby Date of : 05/29/24 Time of : 17:39 Gestational Age by Date: 39 gender: Male presentation: vertex position: Right Occiput Posterior Placenta delivery description: Spontaneous Cord Vessel Description: 3 Vessels, Nuchal Cord and Delayed Cord Clamping score one minute: 9 score five minutes: 9
--- NOTE | 2024-05-29 17:55 | PM.OBDSVD ---
DS: Admitting Diagnosis Discharge Date 05/31/24 Admitting Diagnosis IUP at 39 1/7 weeks Chronic HTN Nonreassuring NST DS: Discharge Diagnosis Discharge Diagnosis (1) (normal spontaneous vaginal delivery): Code(s): O80 - Encounter for full-term uncomplicated delivery Status: Acute (2) Chronic hypertension affecting : Code(s): O10.919 - Unspecified pre-existing hypertension complicating , unspecified trimester Status: Acute (3) Non-reassuring electronic monitoring tracing: Code(s): O36.8390 - Maternal care for abnormalities of the heart rate or rhythm, unspecified trimester, not applicable or unspecified Status: Acute OB - DS: Summary OB Procedures : PIH Mgmt OB Procedures Intrapartum: Spontaneous Vag Delivery OB Procedures: : None Peripartum Data Laceration Description: None Episiotomy description: None Time Spent with Patient Time attestation: Total time spent providing and/or coordinating discharge services: Discharge Plan Discharge Attending physician on discharge: Tian Ybarra Discharging Clinician: Tian Ybarra Patient Disposition: Home, Self-Care Activity: pelvic rest Diet: regular Discharge Instructions: Call or return if temperature above 100.4? F, increased abdominal pain, increased vaginal bleeding or any new problems. Patient Language: Portuguese Stand Alone Forms: General Discharge Information Follow-up/Referrals: Yolie Isaacs MD [Physician] - 6 Weeks Discharge Medications: New ibuprofen 600 mg tablet 600 mg PO Q6H PRN (Reason: cramps) Qty: 30 0RF Continued PNV cmb#95-ferrous fumarate-FA [] 28 mg iron- 800 mcg tablet 1 tablet PO DAILY ferrous sulfate 325 mg (65 mg iron) tablet 325 mg PO DAILY ergocalciferol (vitamin D2) 400 unit capsule 375 mcg PO DAILY Discontinued nifedipine 60 mg tablet extended release 24hr 60 mg PO DAILY aspirin 162.5 mg capsule,extended release 24hr 162.5 mg PO DAILY Date of admission: 05/28/24 08:39 Primary Care Provider: UNKNOWN,DOCTOR Admitting Provider: Yolie Isaacs Attending physician on admission: Yolie Isaacs Condition: Stable
[2024-05-29] MEDS: OXYTOCIN 30 UNITS/NS 500 ML 30 UNITS/500 ML BAG 125 UNITS IV CONT (18:04)
[2024-05-29] MEDS: WITCH HAZEL 40 PADS 1 PAD TOPICAL (19:00)
[2024-05-29] MEDS: BENZOCAINE 20% AER SPR (*SP) 56 GM CAN 1 SPRAY TOPICAL (19:00)
--- NOTE | 2024-05-29 20:45 | OBPPTRN ---
Patient transferred to post room #284 via wheelchair. Support person present. Oriented to unit, room, information board, rooming in, admission packet and security measures. Patient verbalizes understanding.
--- NOTE | 2024-05-29 21:28 | PC.NURSE ---
2115- pump provided per pt request. Pt stated she pumped and breastfed with her prior kids and prefers to do both. Education given on pumping frequency, cleaning, and milk storage. Pt denied any questions at this time and verbalized understanding.
[2024-05-29] MEDS: IBUPROFEN 600 MG TABLET PO (23:48)
[2024-05-30 04:28] LABS: Hematocrit 32.2 % (37.0-47.0); Hemoglobin 10.6 g/dL (12.0-15.0)
[2024-05-30] MEDS: ACETAMINOPHEN 325 MG TABLET 650 MG PO (04:49)
[2024-05-30 07:55] VITALS: BP 116/71; PULSE 81; RESP 16; TEMP 36.2; O2SAT 98
[2024-05-30] MEDS: MULTIVIT/MIN/PREN/FOL AC/IRON TABLET 1 TAB PO (09:55)
[2024-05-30 13:05] VITALS: BP 113/68; PULSE 85; RESP 18; TEMP 36.7; O2SAT 97
[2024-05-30] MEDS: IBUPROFEN 600 MG TABLET PO ×2 (13:58→22:18)
--- NOTE | 2024-05-30 14:09 | WPDANLDPN2 ---
Anes-Prog Note L&D Date/Time: 05/30/24 14:09 Comfortable throughout: labor and delivery Neuraxial method: epidural Epidural/Spinal procedure site: clean & non-tender Neuro status: Neuro function grossly intact. Cardiovascular status: normal Respiratory status: normal Airway patency: baseline Mental status: baseline Post-Op hydration status: normal Vital Signs: Last Vital Signs Temp 36.7 C 05/30/24 13:05 Pulse 85 05/30/24 13:05 Resp 18 05/30/24 13:05 BP 113/68 05/30/24 13:05 Pulse Ox 97 05/30/24 13:05 O2 Del Method Room Air 05/30/24 11:00 Pain score (VAS): 10 I/O: Intake & Output 05/29/24 05/30/24 05/30/24 23:59 07:59 15:59 Output Total 475 Balance -475 Post-procedural complaints: none Patient feedback: Patient satisfied with anesthetic care.
--- NOTE | 2024-05-30 14:55 | PC.NURSE ---
Introductions made, handouts provided. Mother states that hasnt been going well because infant is only latched for short feedings and remains unsatisfied. She is pumping but not getting much from the pump. Encouraged mother to call this RN with next feeding to assess latch and continue pumping q2h when bottles are being supplemented. Mother states understanding and will call this RN with next feeding.
--- NOTE | 2024-05-30 17:12 | P.PNOB_ITS ---
OB - PN: Subj Subjective Date/time seen: 05/30/24 17:12 Narrative: Pain OK. Would like circumcision for son. OB - PN: Obj Data Labs 05/30/24 04:08 05/28/24 09:29 Labs: Laboratory Results - last 24 hr 05/30/24 04:08 Hgb 10.6 L Hct 32.2 L OB - PN A/P Plan Comments: A: PPD#1, doing well. P: Routine care. Reviewed circ. Exam 2 Psych: Other: AVSS ABD soft, nontender, fundus firm EXT nontender
[2024-05-30 22:18] VITALS: BP 125/89; PULSE 79; RESP 18; TEMP 37.2; O2SAT 100
--- NOTE | 2024-05-31 07:25 | PC.NURSE ---
Introductions were made, then consulted with patient to assess needs related to . Discussed with mother her?plans to feed?her and the?experience so far. Per mother the has not been going great, she declined any assistance this morning and plans on discharge today. Mother states, I know how to do it but it just isn't working out right now so I am pumping, I do not need any help. RN gave education on supply and demand and advised mother to continue to put baby to breast and use her breast pump if baby does not latch and feed in order to protect her milk supply. Reinforced understanding of milk production, transition of milk, signs of adequate intake, transition of stool, prevention/relief of engorgement, plugged ducts, mastitis, responsive watching for feeding cues, the different methods of stimulating infant to breastfeed 1-3 hours after the start of the last feeding, community resources, and when to call a provider using the resource of the feeding sheet along with the mom and baby guide. Mother voiced understanding of the information shared, is confident that she will be able to breastfeed her at home, when to call for assistance, denies any additional assistance or education at this time. Resources provided for inpatient and outpatient services with the feeding sheet, mom/baby guide and name written on the communication board. Reported to the Primary RN.
[2024-05-31 07:40] VITALS: BP 116/76; PULSE 90; RESP 16; TEMP 36.8; O2SAT 100
[2024-05-31] MEDS: DOCUSATE SODIUM 100 MG CAPSULE PO (08:02)
[2024-05-31] MEDS: MULTIVIT/MIN/PREN/FOL AC/IRON TABLET 1 TAB PO (08:02)
--- NOTE | 2024-05-31 08:53 | P.PNOB_ITS ---
OB - PN: Subj Subjective Date/time seen: 05/31/24 08:53 Narrative: Pain OK. Would like to go home. OB - PN: Obj Data Labs 05/30/24 04:08 05/28/24 09:29 OB - PN A/P Plan day: 2 Comments: A: PPD#2, doing well. P: Home to f/u 6 weeks. Exam 2 Psych: Other: AVSS ABD soft, nontender, fundus firm EXT nontender
[2024-06-01 10:31] VITALS: BP 135/76; PULSE 91; RESP 18; TEMP 37.1; O2SAT 97
== END 2024-05-31 11:00 | disposition home or self-care (01) | DRG 807 ==
LOC: ANHLDR 06-01 08:56 → ANHOB2 06-01 08:56
PROVIDERS: Admitting Provider Obstetrics & Gynecology; Visit Provider Obstetrics & Gynecology
DX: O10.92 Unspecified pre-existing hypertension complicating childbirth (principal); Z37.0 Single live birth; Z3A.39 39 weeks gestation of pregnancy; O69.81X0 Labor and delivery complicated by cord around neck, without compression, not applicable or unspecified; O99.892 Other specified diseases and conditions complicating childbirth; R73.03 Prediabetes
CPT/HCPCS: 36415; 80053; 84550; 85014; 85018; 85025; 85055; 86593; 86703; 86850; 86900; 86901; 88307; A9270; G0432; J2405; J2590; J2795; J7030; J7120